=== PATIENT | male | born 1990 | race Caucasian/White ===

== ENCOUNTER 2017-03-13 14:41 | Emergency (ER) | payer OTHER ==
[2017-03-13] MEDS ORDERED: KETOROLAC 60 MG/2 ML VIAL IM STA (14:55)
[2017-03-13 14:59] VITALS: BP 135/76; PULSE 72; RESP 18; TEMP 98.2
--- NOTE | 2017-03-13 15:21 | ED ---
Back Pain HPI - General Stated Complaint: back pain Time Seen by Provider: 03/13/17 14:41 Source: patient, RN/MD, RN notes reviewed Limitations: no limitations - History of Present Illness Initial Comments: This is a 26-year-old male who presents emergency department complaining of low back pain. Patient states she was sitting something down at home at about 8 AM this morning and pulled something in his right lower back. He is Sharp pain which is exacerbated by movement. Pain does radiate into the right leg. Patient has some tingling in both legs. Patient denies any numbness or tingling in the scrotal area or the genital area. Patient denies problems with bowels or urination. No fever or chills. No nausea vomiting. No abdominal pain. No recent instrumentation. No trauma. No history of diabetes or immunosuppression. No fever or chills. Patient denies any shortness breath or chest pain, no neck pain, no headache or dizziness. MD Complaint: back pain - Related Data Previous Rx's Medication Instructions Recorded Cyclobenzaprine [Flexeril] 10 mg PO TID PRN #20 tab 03/13/17 Naproxen [Naprosyn] 500 mg PO Q12HR PRN #24 tab 03/13/17 Allergies Allergy/AdvReac Type Severity Reaction Status Date / Time No Known Allergies Allergy Verified 03/13/17 14:52 Review of Systems ROS Statement: Those systems with pertinent positive or pertinent negative responses have been documented in the HPI. ROS Other: All systems not noted in ROS Statement are negative. Past Medical History Past Medical History: Hypertension Additional Past Medical History / Comment(s): History of previous back pain secondary to an injury in [place] History of Any Multi-Drug Resistant Organisms: None Reported Past Surgical History: Adenoidectomy, Orthopedic Surgery, Tonsillectomy Past Psychological History: PTSD Smoking Status: Current some day smoker Past Alcohol Use History: Occasional Past Drug Use History: None Reported General Exam - General Exam Comments Initial Comments: This is a well-developed, well-nourished 26-year-old male who presents emergency department in moderate distress secondary to right low back pain. Patient does not appear to be ill or toxic. Limitations: no limitations General appearance: alert, in distress Head exam: Present: atraumatic, normocephalic, normal inspection Eye exam: Present: normal appearance, EOMI. Absent: scleral icterus, conjunctival injection, periorbital swelling ENT exam: Present: normal exam, mucous membranes moist Neck exam: Present: normal inspection. Absent: tenderness, meningismus, lymphadenopathy Respiratory exam: Present: normal lung sounds bilaterally. Absent: respiratory distress, wheezes, rales, rhonchi, stridor Cardiovascular Exam: Present: regular rate, normal rhythm, normal heart sounds. Absent: systolic murmur, diastolic murmur, rubs, gallop, clicks GI/Abdominal exam: Present: soft. Absent: distended, tenderness, guarding, rebound, rigid Extremities exam: Present: normal inspection, full ROM, normal capillary refill. Absent: tenderness, pedal edema, joint swelling, calf tenderness Back exam: Present: normal inspection, tenderness, paraspinal tenderness, other (Patient has mild tenderness to the area of the right lumbar paraspinals. There is no overlying rash or erythema. There is no midline tenderness. No crepitus. No step-off. Straight leg raise is negative and laterally, patient does have pain in the back with this maneuver. Distal sensation intact, DTRs are intact with regards patellar and Achilles. Great toe extensor strength is + 5 out of 5.). Absent: full ROM, CVA tenderness (L), muscle spasm, vertebral tenderness, rash noted Neurological exam: Present: alert, oriented X3, CN II-XII intact Psychiatric exam: Present: normal affect, normal mood Skin exam: Present: warm, dry, intact, normal color. Absent: rash Course Vital Signs 03/13/17 14:52 Temperature 98.2 F Pulse Rate 72 Respiratory 18 Rate Blood Pressure 135/76 O2 Sat by Pulse 98 Oximetry Medical Decision Making - Medical Decision Making Patient appears have muscular skeletal back pain. Patient does not appear to be ill or toxic. Disposition Clinical Impression: Strain of lumbar region, Lumbar radiculopathy Disposition: HOME SELF-CARE Condition: Good Instructions: Acute Low Back Pain (ED) Additional Instructions: Ensure that you follow-up with your primary care physician for reevaluation within 2-3 days. Partake in light walking, 20 minutes at a time 2 or 3 times daily. Apply moist heat to the back 20 minutes at a time 3 or 4 times daily.Return to the ER at once if the symptoms worsen or problems or difficulties arise. Do not take the Naprosyn for at least 8-12 hours. Prescriptions: Cyclobenzaprine [Flexeril] 10 mg PO TID PRN #20 tab PRN Reason: Muscle Spasm Naproxen [Naprosyn] 500 mg PO Q12HR PRN #24 tab PRN Reason: Pain Referrals: Jillian Burks MD [STAFF PHYSICIAN] - 03/17/17 Time of Disposition: 15:17
== END 2017-03-13 15:46 | disposition home or self-care (01) ==
LOC: EC 14:41
DX: S39.012A Strain of muscle, fascia and tendon of lower back, initial encounter (principal); M54.16 Radiculopathy, lumbar region; F17.200 Nicotine dependence, unspecified, uncomplicated; Z98.890 Other specified postprocedural states; Y92.009 Unspecified place in unspecified non-institutional (private) residence as the place of occurrence of the external cause
CPT/HCPCS: 99283; 96372; J1885

== ENCOUNTER → 2017-03-19 | Outpatient (CLI) | payer OTHER ==
--- NOTE | 2017-03-20 05:41 | MR ---
EXAMINATION TYPE: MR lumbar spine wo con DATE OF EXAM: 03/19/2017 COMPARISON: Lumbar spine x-ray September 17, 2012. HISTORY: Severe LBP since 2012, injured while bending, felt a pop, legs went numb per patient. Low ba ck pain per order. TECHNIQUE: Multiplanar, multisequence imaging of the lumbar spine is performed without IV contrast. FINDINGS: Sagittal images of the lumbar spine show vertebral body heights and alignment to appear sat isfactory. There is disc desiccation at L2-L3 and L4-L5 levels. Mild to moderate disc space narrowin g L4-L5 level is seen. Small posterior disc herniations are seen at L2-L3 and L4-L5 levels on sagitta l images. The conus medullaris is not well identified believed ending near T12-L1 disc space likely w ithin normal limits. The bone marrow signal intensity is within normal limits. No significant spurri ng is seen. Axial images are suboptimal as are degraded by patient's large body habitus. Axial images at T12-L1 a nd L1-L2 levels are likely within normal limits. Axial images at L2-L3 level show mild broad disc bulge minimally effacing anterior thecal sac, bilate ral neural foramina are patent on axial image 12. Axial images at L3-L4 level are within normal limits. Axial images at L4-L5 level show broad disc bulge with central disc protrusion component effacing ant erior thecal sac and axial image 8, bilateral neural foramina are patent. Axial images at L5-S1 level are felt within normal limits. No suspicious retroperitoneal findings are seen. IMPRESSION: Degenerative changes at L2-L3 and L4-L5 level are seen as detailed above.
== END | disposition home or self-care (01) ==
LOC: RADMRIMAIN 21:21
PROVIDERS: ATTEND Physical Medicine & Rehabilitation
DX: M47.26 Other spondylosis with radiculopathy, lumbar region (principal); K21.9 Gastro-esophageal reflux disease without esophagitis; F43.10 Post-traumatic stress disorder, unspecified
CPT/HCPCS: 72148

== ENCOUNTER 2018-09-28 02:50 | Inpatient (IN) | payer BC, OTHER ==
[2018-09-28] MEDS ORDERED: HYDROmorphone 1 MG/ML 1 ML SYRINGE IVP STA ×3 (03:30→06:15)
--- NOTE | 2018-09-28 03:36 | ED ---
Abdominal Pain HPI - General Chief Complaint: Abdominal Pain Stated Complaint: abd pain Time Seen by Provider: 09/28/18 02:57 Source: patient, family Mode of arrival: ambulatory Limitations: no limitations - History of Present Illness Initial Comments: This patient is a 28-year-old man with previous history kidney stone, who presents with complaint of right lower quadrant and right flank pain. The patient states that the pain had come on last evening. He was seen at [facility], where he reportedly had a CAT scan that showed reported kidney stone. The patient was given a number of prescriptions and released. He states that the pain became much more severe tonight. He states that the pain is currently severe, he is not able to characterize it, he indicates the right lower quadrant stating the pain is from the right testicle into the right flank. He has not discovered worsening or relieving factors. He hasn't tried taking the ketorolac and hydrocodone that was prescribed without relief. He is having some nausea. States his last bowel movement was earlier in the day and there was no blood or tarry material. He has not noted a change in urination. MD Complaint: abdominal pain, flank pain Onset/Timin -: hour(s) Location: RLQ, R flank Severity: severe Quality: other (Not able to characterize) Consistency: constant Improves With: nothing Worsens With: nothing Associated Symptoms: nausea - Related Data Home Medications Medication Instructions Recorded Confirmed Dextroamphetamine/Amphetamine 25 mg PO BID 09/28/18 09/28/18 [Adderall Xr] HYDROcodone/APAP 5-325MG [[place] 1 tab PO Q6H PRN 09/28/18 09/28/18 5-325] Ketorolac [Toradol] 10 mg PO Q6HR PRN 09/28/18 09/28/18 Omeprazole Magnesium [PriLOSEC OTC] 40 mg PO DAILY 09/28/18 09/28/18 Ondansetron Odt [Zofran Odt] 4 mg PO Q12HR PRN 09/28/18 09/28/18 Tamsulosin [Flomax] 0.4 mg PO DAILY 09/28/18 09/28/18 Allergies Allergy/AdvReac Type Severity Reaction Status Date / Time No Known Allergies Allergy Verified 09/28/18 07:07 Review of Systems ROS Statement: Those systems with pertinent positive or pertinent negative responses have been documented in the HPI. ROS Other: All systems not noted in ROS Statement are negative. Constitutional: Denies: fever, chills Respiratory: Denies: cough, dyspnea Cardiovascular: Denies: chest pain, palpitations Gastrointestinal: Reports: abdominal pain, nausea. Denies: vomiting, diarrhea, melena, hematochezia Genitourinary: Reports: testicular pain. Denies: dysuria, hematuria, discharge, testicular mass Musculoskeletal: Denies: back pain Skin: Denies: rash Neurological: Denies: headache, weakness, numbness Past Medical History Past Medical History: Hypertension Additional Past Medical History / Comment(s): History of previous back pain sec ondary to an injury in [place] History of Any Multi-Drug Resistant Organisms: None Reported Past Surgical History: Adenoidectomy, Orthopedic Surgery, Tonsillectomy Past Psychological History: PTSD Smoking Status: Current some day smoker Past Alcohol Use History: Occasional Past Drug Use History: None Reported General Exam Limitations: physical limitation (The exam is limited as the patient resists palpation of either the abdomen or the scrotum.) General appearance: alert, in distress Head exam: Present: atraumatic, normocephalic Eye exam: Present: normal appearance Respiratory exam: Present: normal lung sounds bilaterally. Absent: respiratory distress, wheezes, rales, rhonchi, stridor Cardiovascular Exam: Present: regular rate, normal rhythm, normal heart sounds. Absent: systolic murmur, diastolic murmur, rubs, gallop GI/Abdominal exam: Present: tenderness, guarding. Absent: rigid, mass exam: Present: normal inspection, testicular tenderness, circumcision. Absent: urethral discharge, scrotal swelling Extremities exam: Present: normal inspection, normal capillary refill. Absent: pedal edema, calf tenderness Back exam: Present: normal inspection. Absent: CVA tenderness (R), CVA tenderness (L) Neurological exam: Present: alert Skin exam: Present: warm, dry, intact, normal color. Absent: rash Course Vital Signs 09/28/18 09/28/18 09/28/18 02:57 04:15 06:46 Temperature 97.5 F L 98.3 F Pulse Rate 72 78 Respiratory 20 18 18 Rate Blood Pressure 138/76 128/83 O2 Sat by Pulse 99 97 Oximetry Medical Decision Making - Lab Data Result diagrams: 09/28/18 03:10 09/28/18 03:10 Lab Results 09/28/18 09/28/18 09/28/18 Range/Units 03:10 03:10 03:10 WBC 11.5 H (3.8-10.6) k/uL RBC 5.36 (4.30-5.90) m/uL Hgb 16.1 (13.0-17.5) gm/dL Hct 45.6 (39.0-53.0) % MCV 85.0 (80.0-100.0) fL MCH 30.0 (25.0-35.0) pg MCHC 35.3 (31.0-37.0) g/dL RDW 12.7 (11.5-15.5) % Plt Count 247 (150-450) k/uL Neutrophils % 63 % Lymphocytes % 26 % Monocytes % 6 % Eosinophils % 2 % Basophils % 0 % Neutrophils # 7.3 (1.3-7.7) k/uL Lymphocytes # 3.0 (1.0-4.8) k/uL Monocytes # 0.7 (0-1.0) k/uL Eosinophils # 0.2 (0-0.7) k/uL Basophils # 0.0 (0-0.2) k/uL Sodium 142 (137-145) mmol/L Potassium 4.2 (3.5-5.1) mmol/L Chloride 111 H (98-107) mmol/L Carbon Dioxide 22 (22-30) mmol/L Anion Gap 9 mmol/L BUN 17 (9-20) mg/dL Creatinine 1.18 (0.66-1.25) mg/dL Est GFR (CKD-EPI)AfAm >90 (>60 ml/min/1.73 sqM) Est GFR (CKD-EPI)NonAf 82 (>60 ml/min/1.73 sqM) Glucose 98 (74-99) mg/dL Lactic Ac Sepsis Rflx Plasma Lactic Acid Daniel 2.1 H* (0.7-2.0) mmol/L Calcium 10.0 (8.4-10.2) mg/dL Total Bilirubin 0.5 (0.2-1.3) mg/dL AST 23 (17-59) U/L ALT 37 (21-72) U/L Alkaline Phosphatase 85 (38-126) U/L Total Protein 6.9 (6.3-8.2) g/dL Albumin 4.4 (3.5-5.0) g/dL Amylase 56 (30-110) U/L Lipase 106 (23-300) U/L Urine Color Urine Appearance (Clear) Urine pH (5.0-8.0) Ur Specific [place] (1.001-1.035) Urine Protein (Negative) Urine Glucose (UA) (Negative) Urine Ketones (Negative) Urine Blood (Negative) Urine Nitrite (Negative) Urine Bilirubin (Negative) Urine Urobilinogen (<2.0) mg/dL Ur Leukocyte Esterase (Negative) Urine RBC (0-5) /hpf Urine WBC (0-5) /hpf Urine Mucus (None) /hpf 09/28/18 09/28/18 Range/Units 03:51 04:44 WBC (3.8-10.6) k/uL RBC (4.30-5.90) m/uL Hgb (13.0-17.5) gm/dL Hct (39.0-53.0) % MCV (80.0-100.0) fL MCH (25.0-35.0) pg MCHC (31.0-37.0) g/dL RDW (11.5-15.5) % Plt Count (150-450) k/uL Neutrophils % % Lymphocytes % % Monocytes % % Eosinophils % % Basophils % % Neutrophils # (1.3-7.7) k/uL Lymphocytes # (1.0-4.8) k/uL Monocytes # (0-1.0) k/uL Eosinophils # (0-0.7) k/uL Basophils # (0-0.2) k/uL Sodium (137-145) mmol/L Potassium (3.5-5.1) mmol/L Chloride (98-107) mmol/L Carbon Dioxide (22-30) mmol/L Anion Gap mmol/L BUN (9-20) mg/dL Creatinine (0.66-1.25) mg/dL Est GFR (CKD-EPI)AfAm (>60 ml/min/1.73 sqM) Est GFR (CKD-EPI)NonAf (>60 ml/min/1.73 sqM) Glucose (74-99) mg/dL Lactic Ac Sepsis Rflx Y Plasma Lactic Acid Daniel (0.7-2.0) mmol/L Calcium (8.4-10.2) mg/dL Total Bilirubin (0.2-1.3) mg/dL AST (17-59) U/L ALT (21-72) U/L Alkaline Phosphatase (38-126) U/L Total Protein (6.3-8.2) g/dL Albumin (3.5-5.0) g/dL Amylase (30-110) U/L Lipase (23-300) U/L Urine Color Light Red Urine Appearance Clear (Clear) Urine pH 6.0 (5.0-8.0) Ur Specific [place] 1.028 (1.001-1.035) Urine Protein 1+ H (Negative) Urine Glucose (UA) Negative (Negative) Urine Ketones Negative (Negative) Urine Blood Large H (Negative) Urine Nitrite Negative (Negative) Urine Bilirubin Negative (Negative) Urine Urobilinogen <2.0 (<2.0) mg/dL Ur Leukocyte Esterase Negative (Negative) Urine RBC >182 H (0-5) /hpf Urine WBC 4 (0-5) /hpf Urine Mucus Few H (None) /hpf Disposition Clinical Impression: Kidney stone on right side, Intractable pain Disposition: ADMITTED IP TO THIS HOSP Condition: Good Is patient prescribed a controlled substance at d/c from ED?: No
[2018-09-28 03:39] LABS: Basophils % (A) 0 %; Eosinophils # (A) 0.2 k/uL (0-0.7); Eosinophils % (A) 2 %; HCT 45.6 % (39.0-53.0); HGB 16.1 gm/dL (13.0-17.5); Lymphocytes % (A) 26 %; MCHC 35.3 g/dL (31.0-37.0); Mean Platelet Volume 7.5; Monocytes # (A) 0.7 k/uL (0-1.0); Monocytes % (A) 6 %; Neutrophils # (A) 7.3 k/uL (1.3-7.7); Neutrophils % (A) 63 %; Platelet Count 247 k/uL (150-450); RBC 5.36 m/uL (4.30-5.90); RDW 12.7 % (11.5-15.5); WBC 11.5 k/uL (3.8-10.6)
[2018-09-28] MEDS ORDERED: ONDANSETRON 4 MG/2 ML VIAL IVP STA ×2 (03:43→03:44)
[2018-09-28 03:50] LABS: ALT 37 U/L (21-72); AST 23 U/L (17-59); Albumin 4.4 g/dL (3.5-5.0); Alkaline Phosphatase 85 U/L (38-126); Amylase 56 U/L (30-110); Anion Gap 9 mmol/L; Blood Urea Nitrogen 17 mg/dL (9-20); Carbon Dioxide 22 mmol/L (22-30); Chloride 111 mmol/L (98-107); Glucose 98 mg/dL (74-99); Lipase 106 U/L (23-300); Potassium 4.2 mmol/L (3.5-5.1); Sodium 142 mmol/L (137-145); Total Bilirubin 0.5 mg/dL (0.2-1.3); Total Protein 6.9 g/dL (6.3-8.2)
[2018-09-28] MEDS ORDERED: TAMSULOSIN 0.4 MG CAP.ER.24H PO STA (04:26)
[2018-09-28] MEDS ORDERED: KETOROLAC 30 MG/ML 1 ML VIAL IVP STA (04:34)
--- NOTE | 2018-09-28 04:41 | US ---
EXAM: US Scrotum CLINICAL HISTORY: Pain. Abdominal pain, vomiting, back pain, right testicular pain; prior left torsion per patient; renal stone per patient TECHNIQUE: Real-time ultrasound of the scrotum with color Doppler and image documentation. COMPARISON: No relevant prior studies available. FINDINGS: Right testicle: Right testis measures about 5.3 x 2.6 x 3.1 cm. No torsion. Left testicle: Left testis measures about 4.9 x 2.7 x 2.9 cm No torsion. Epididymides: Unremarkable. Scrotum: Unremarkable. IMPRESSION: No acute findings.
[2018-09-28 05:11] LABS: Appearance,Urine Clear (Clear); Bilirubin,Urine Negative (Negative); Blood,Urine Large (Negative); Color,Urine Light Red; Glucose,Urine (UA) Negative (Negative); Ketones,Urine Negative (Negative); Leukocyte Esterase,Urine Negative (Negative); Mucus,Urine Few /hpf; Nitrite,Urine Negative (Negative); Protein,Urine 1+ (Negative); RBC,Urine >182 /hpf (0-5); Specific Gravity,Urine 1.028 (1.001-1.035); Urobilinogen,Urine <2.0 mg/dL (<2.0); WBC,Urine 4 /hpf (0-5)
--- NOTE | 2018-09-28 05:32 | CT ---
EXAM: CT Abdomen and Pelvis Without Intravenous Contrast CLINICAL HISTORY: RLQ abd pain that radiates into groin area. TECHNIQUE: Axial computed tomography images of the abdomen and pelvis without intravenous contrast. CTDI is 19.1 mGy and DLP is 1136 mGy-cm. This CT exam was performed using one or more of the following dose reduction techniques: automated exposure control, adjustment of the mA and/or kV according to patient size, and/or use of iterative reconstruction technique. Coronal and sagittal reconstructions are performed COMPARISON: No relevant prior studies available. FINDINGS: Lung bases: Unremarkable. No mass. No consolidation. ABDOMEN: Liver: Unremarkable. Gallbladder and bile ducts: Unremarkable. No calcified stones. No ductal dilation. Pancreas: Unremarkable. No ductal dilation. Spleen: Unremarkable. No splenomegaly. Adrenals: Unremarkable. No mass. Kidneys and ureters: 5 mm obstructing right vesicoureteral junction stone causes mild hydroureter and hydronephrosis. Tiny nonobstructing bilateral renal stones measuring up to 4 mm. Stomach and bowel: Unremarkable. No obstruction. No mucosal thickening. PELVIS: Appendix: Normal. Bladder: Unremarkable. No stones. Reproductive: Unremarkable as visualized. ABDOMEN and PELVIS: Intraperitoneal space: Unremarkable. No free air. No significant fluid collection. Bones/joints: No acute fracture. No dislocation. Soft tissues: Unremarkable. Vasculature: Unremarkable. No abdominal aortic aneurysm. Lymph nodes: Unremarkable. No enlarged lymph nodes. IMPRESSION: 1. 5 mm obstructing right vesicoureteral junction stone causes mild hydroureter and hydronephrosis. 2. Tiny nonobstructing bilateral renal stones measuring up to 4 mm.
[2018-09-28] MEDS ORDERED: ONDANSETRON 4 MG/2 ML VIAL IVP PRN (06:17)
[2018-09-28] MEDS ORDERED: NALOXONE 0.4 MG/ML 1 ML VIAL IV PRN (06:17)
[2018-09-28] MEDS ORDERED: SODIUM CHLORIDE 0.9% 1,000 ML IV SCH (06:30)
--- NOTE | 2018-09-28 07:46 | P.GSHP ---
History of Present Illness H&P Date: 09/28/18 This is a pleasant 28-year-old gentleman who for the past week has been having problems with hematuria and then over the weekend right-sided flank and lower quadrant pain. He was seen at [facility] where he was suspected of the stone and was discharged home for spontaneous passage only to have the discomfort returned. He presented to [facility]. His situation was reviewed. The identification of a 5 mm distal ureteral stone with proximal hydroureteronephrosis was identified. Due to persistent pain he was admitted for IV fluids parenteral narcotics and further evaluation. The patient does have a history of stones. He passed one last in 2011. He has not had urologic evaluation or urologic surgery. Medical illnesses. He is reasonably comfortable at this point in time. There is been no fever. He has had some chills. There is been nausea and vomiting. He does not know of any family history of stones - Constitutional Constitutional: Denies chills, Denies fever - EENT Eyes: denies blurred vision, denies pain Ears, nose, mouth and throat: Denies headache, Denies sore throat - Cardiovascular Cardiovascular: Denies chest pain, Denies shortness of breath - Respiratory Respiratory: Denies cough, Denies 7 - Gastrointestinal Gastrointestinal: Denies abdominal pain, Denies diarrhea, Denies nausea, Denies vomiting - Genitourinary (Female) Genitourinary: Denies dysuria, Denies hematuria - Genitourinary (Male) Genitourinary: Denies dysuria, Denies hematuria - Musculoskeletal Musculoskeletal: Denies myalgias - Integumentary Integumentary: Denies pruritus, Denies rash - Neurological Neurological: Denies numbness, Denies weakness - Psychiatric Psychiatric: Denies anxiety, Denies depression - Endocrine Endocrine: Denies fatigue, Denies weight change Past Medical History Past Medical History: Hypertension Additional Past Medical History / Comment(s): History of previous back pain secondary to an injury in [place] History of Any Multi-Drug Resistant Organisms: None Reported Past Surgical History: Adenoidectomy, Orthopedic Surgery, Tonsillectomy Past Psychological History: PTSD Smoking Status: Current some day smoker Past Alcohol Use History: Occasional Past Drug Use History: None Reported Medications and Allergies Home Medications Medication Instructions Recorded Confirmed Type Dextroamphetamine/Amphetamine 25 mg PO BID 09/28/18 09/28/18 History [Adderall Xr] HYDROcodone/APAP 5-325MG [[place] 1 tab PO Q6H PRN 09/28/18 09/28/18 History 5-325] Ketorolac [Toradol] 10 mg PO Q6HR PRN 09/28/18 09/28/18 History Omeprazole Magnesium [PriLOSEC OTC] 40 mg PO DAILY 09/28/18 09/28/18 History Ondansetron Odt [Zofran Odt] 4 mg PO Q12HR PRN 09/28/18 09/28/18 History Tamsulosin [Flomax] 0.4 mg PO DAILY 09/28/18 09/28/18 History Allergies Allergy/AdvReac Type Severity Reaction Status Date / Time No Known Allergies Allergy Verified 09/28/18 07:07 Surgical - Exam Vital Signs Temp Pulse Resp BP Pulse Ox 97.5 F L 72 20 138/76 99 09/28/18 02:57 09/28/18 02:57 09/28/18 02:57 09/28/18 02:57 09/28/18 02:57 - General well developed, well nourished, no distress - Eyes PERRL - ENT no hearing loss - Neck trachea midline - Respiratory normal expansion, normal respiratory effort - Cardiovascular Rhythm: regular - Abdomen Abdomen: soft, tender - Genitourinary normal penis with no external lesions, testicles present - Integumentary no rash, no growths - Neurologic normal coordination, normal sensation - Musculoskeletal normal posture - Psychiatric oriented to time, oriented to person, oriented to place, speech is normal, mem ory intact Results - Labs 09/28/18 03:10 09/28/18 03:10 Abnormal Lab Results - Last 24 Hours (Table) 09/28/18 09/28/18 09/28/18 Range/Units 03:10 03:10 03:10 WBC 11.5 H (3.8-10.6) k/uL Chloride 111 H (98-107) mmol/L Plasma Lactic Acid Daniel 2.1 H* (0.7-2.0) mmol/L Urine Protein (Negative) Urine Blood (Negative) Urine RBC (0-5) /hpf Urine Mucus (None) /hpf 09/28/18 Range/Units 04:44 WBC (3.8-10.6) k/uL Chloride (98-107) mmol/L Plasma Lactic Acid Daniel (0.7-2.0) mmol/L Urine Protein 1+ H (Negative) Urine Blood Large H (Negative) Urine RBC >182 H (0-5) /hpf Urine Mucus Few H (None) /hpf Diabetes panel 09/28/18 Range/Units 03:10 Sodium 142 (137-145) mmol/L Potassium 4.2 (3.5-5.1) mmol/L Chloride 111 H (98-107) mmol/L Carbon Dioxide 22 (22-30) mmol/L BUN 17 (9-20) mg/dL Creatinine 1.18 (0.66-1.25) mg/dL Glucose 98 (74-99) mg/dL Calcium 10.0 (8.4-10.2) mg/dL AST 23 (17-59) U/L ALT 37 (21-72) U/L Alkaline Phosphatase 85 (38-126) U/L Total Protein 6.9 (6.3-8.2) g/dL Albumin 4.4 (3.5-5.0) g/dL Calcium panel 09/28/18 Range/Units 03:10 Calcium 10.0 (8.4-10.2) mg/dL Albumin 4.4 (3.5-5.0) g/dL Pituitary panel 09/28/18 Range/Units 03:10 Sodium 142 (137-145) mmol/L Potassium 4.2 (3.5-5.1) mmol/L Chloride 111 H (98-107) mmol/L Carbon Dioxide 22 (22-30) mmol/L BUN 17 (9-20) mg/dL Creatinine 1.18 (0.66-1.25) mg/dL Glucose 98 (74-99) mg/dL Calcium 10.0 (8.4-10.2) mg/dL Adrenal panel 09/28/18 Range/Units 03:10 Sodium 142 (137-145) mmol/L Potassium 4.2 (3.5-5.1) mmol/L Chloride 111 H (98-107) mmol/L Carbon Dioxide 22 (22-30) mmol/L BUN 17 (9-20) mg/dL Creatinine 1.18 (0.66-1.25) mg/dL Glucose 98 (74-99) mg/dL Calcium 10.0 (8.4-10.2) mg/dL Total Bilirubin 0.5 (0.2-1.3) mg/dL AST 23 (17-59) U/L ALT 37 (21-72) U/L Alkaline Phosphatase 85 (38-126) U/L Total Protein 6.9 (6.3-8.2) g/dL Albumin 4.4 (3.5-5.0) g/dL - Imaging CT scan - abdomen: report reviewed, image reviewed CT scan - pelvis: report reviewed, image reviewed Assessment and Plan Assessment: Impression: Right ureteral calculus with obstruction. Right renal calculi, small Recommendations: I will run IV fluids and given parenteral narcotics as well as Flomax to see if this stone can pass today. If not he wishes it to be removed which would be set up for tomorrow.
[2018-09-28] MEDS: DEXTROSE 5%-0.45% NACL 1,000 ML IV SCH ×3 (08:45→23:55)
[2018-09-28] MEDS: HYDROmorphone 1 MG/ML 1 ML SYRINGE IVP PRN ×6 (09:34→23:48)
[2018-09-28] MEDS: ONDANSETRON 4 MG/2 ML VIAL IVP PRN ×3 (12:58→23:46)
[2018-09-28] MEDS: METOCLOPRAMIDE 5 MG/ML 2 ML VIAL IVP PRN (19:21)
[2018-09-28] MEDS: HYDROmorphone 1 MG/ML 1 ML SYRINGE IVP STA ×2 (19:40→20:34)
[2018-09-29] MEDS: METOCLOPRAMIDE 5 MG/ML 2 ML VIAL IVP PRN (05:44)
[2018-09-29] MEDS: HYDROmorphone 1 MG/ML 1 ML SYRINGE IVP PRN ×3 (05:47→11:39)
[2018-09-29] MEDS: DEXTROSE 5%-0.45% NACL 1,000 ML IV SCH ×2 (07:55→16:03)
[2018-09-29] MEDS ORDERED: TAMSULOSIN 0.4 MG CAP.ER.24H PO SCH (08:30)
[2018-09-29] MEDS ORDERED: IV FLUID CONTINUATION 1,000 ML IV ONE (11:52)
[2018-09-29] MEDS ORDERED: MIDAZOLAM 2 MG/2 ML VIAL IV ONE (12:02)
[2018-09-29] MEDS ORDERED: LIDOCAINE 1% INJ 10MG/ML (20 ML MDV) ONE (12:40)
[2018-09-29] MEDS ORDERED: PROPOFOL 10 MG/ML 20 ML VIAL IV ONE (12:40)
[2018-09-29] MEDS ORDERED: ROCURONIUM BROMIDE 10 MG/ML 10 ML VIAL IV ONE (12:40)
[2018-09-29] MEDS ORDERED: MIDAZOLAM 2 MG/2 ML VIAL ONE (12:40)
[2018-09-29] MEDS ORDERED: SUCCINYLCHOLINE CHLORIDE VIAL 200 MG/10 ML VIAL IV ONE (12:40)
[2018-09-29] MEDS ORDERED: fentaNYL (PF) 50 MCG/ML 2 ML AMP ONE (12:40)
[2018-09-29] MEDS ORDERED: GLYCOPYRROLATE 0.2 MG/ML 2 ML VIAL ONE (12:40)
[2018-09-29] MEDS ORDERED: NEOSTIGMINE 1 MG/ML 10 ML VIAL ONE (12:40)
[2018-09-29] MEDS ORDERED: SODIUM CHLORIDE 0.9% 100 ML with ceFAZolin 2,000 MG IV ONE ×2 (12:51)
[2018-09-29] MEDS ORDERED: IOHEXOL 300 MG/ML 50 ML BOTTLE MISCELLANE ONE (13:05)
[2018-09-29] MEDS ORDERED: LACTATED RINGERS 1,000 ML IV ONE (13:23)
--- NOTE | 2018-09-29 13:36 | P.OP ---
Date of Procedure: 09/29/18 Preoperative Diagnosis: right ureteral calculus Postoperative Diagnosis: same, passed Procedure(s) Performed: cystoscopy, right ureteroscopy, right retrograde pyelogram Anesthesia: TIAN Surgeon: Bhaskar Langley Pathology: none sent Condition: stable Disposition: PACU Indications for Procedure: the patient is a 28-year-old gentleman who presented to the hospital early in the morning 331 with severe he right ureteral colic. A computed tomography scan identified a 5 mm distal ureteral stone. He was admitted the hospital. He continue to have pain on for one was set up for a right ureteroscopy today. He states that he did not pass a stone and was still having some pain preoperatively. Description of Procedure: the patient is brought to the operating suite. He is given a general endotracheal anesthesia. He's placed lithotomy position with a sterile prep and drape. Fluoroscopy identifies a calcification in the region of the right distal ureter. Cystoscopy Foroblique lens and 22-[place] sheath identifies a normal urethra. The bladder mucosa is unremarkable. Ureters are unremarkable. Since it appears that the stone is in the distal ureter the 7-[place] mini ureteroscope was passed through the urethra into the bladder and then up the ureter. The calcification seen on the fluoroscopy was actually outside where the scope was going up. I can see edema and erythema in the region where stone probably lodged. I removed the ureteroscope and then within a cone-tipped catheter a retrograde pyelogram and the ureters of normal course and caliber. There is slight swelling of the ureter where the stone obstructed but there is no filling defect consistent with a stone. The bladder strain the cystoscopy and ureteroscope remove the patient's awake and returned recovery in good condition Impression this patient probably passed a stone. I inspected closely to make sure there was not a duplex system and I did not see any. He'll be discharged home later today and follow in the office in one week. End of dictation
--- NOTE | 2018-09-29 13:38 | P.DS ---
Providers Date of admission: 09/28/18 06:17 Attending physician: Bhaskar Langley Primary care physician: El Regan Pertinent Studies: the patient was a 28-year-old gentleman who is had ureteral colic for about a week. He is admitted the hospital early Friday morning with severe ureteral colic a. He was given 24 hours to pass a stone but he did not he had severe pain throughout the day and night including nausea and vomiting as he is set up for ureteroscopy today. He states that he felt better today but had not passed a stone. He thus underwent cystoscopy retrograde pyelogram ureteroscopy and it up here as it the stone passes none was identified. The patient will thus be discharged home. He'll follow-up in the office in one week. His diet is regular. His activities Limited is normal. He may return to work. He shouldn't require any medicine other than Tylenol or Motrin. His condition is good. Patient Condition at Discharge: Good Plan - Discharge Summary Discharge Rx Participant: No New Discharge Prescriptions: No Action Tamsulosin [Flomax] 0.4 mg PO DAILY Ondansetron Odt [Zofran Odt] 4 mg PO Q12HR PRN PRN Reason: Nausea Ketorolac [Toradol] 10 mg PO Q6HR PRN PRN Reason: Pain Omeprazole Magnesium [PriLOSEC OTC] 40 mg PO DAILY HYDROcodone/APAP 5-325MG [[place] 5-325] 1 tab PO Q6H PRN PRN Reason: Pain Dextroamphetamine/Amphetamine [Adderall Xr] 25 mg PO BID Discharge Medication List Dextroamphetamine/Amphetamine [Adderall Xr] 25 mg PO BID 09/28/18 [History] HYDROcodone/APAP 5-325MG [[place] 5-325] 1 tab PO Q6H PRN 09/28/18 [History] Ketorolac [Toradol] 10 mg PO Q6HR PRN 09/28/18 [History] Omeprazole Magnesium [PriLOSEC OTC] 40 mg PO DAILY 09/28/18 [History] Ondansetron Odt [Zofran Odt] 4 mg PO Q12HR PRN 09/28/18 [History] Tamsulosin [Flomax] 0.4 mg PO DAILY 09/28/18 [History] Follow up Appointment(s)/Referral(s): El Regan MD [Primary Care Provider] - 1-2 days Bhaskar Langley MD [STAFF PHYSICIAN] - 1 Week Discharge Disposition: HOME SELF-CARE
[2018-09-29 13:49] VITALS: RESP 16
[2018-09-29] MEDS ORDERED: KETOROLAC 30 MG/ML 1 ML VIAL IVP ONE (14:04)
[2018-09-29] MEDS: ONDANSETRON 4 MG/2 ML VIAL IVP PRN (14:04)
[2018-09-29] MEDS ORDERED: HYDROmorphone 1 MG/ML 1 ML SYRINGE IVP ONE (14:15)
--- NOTE | 2018-09-29 14:19 | FL ---
Fluoroscopy HISTORY: Right lower quadrant abdomen pain, right ureteral stone 39 seconds fluoroscopy time supplied to the referring clinician. 7 intraoperative C-arm images docum ent the procedure. See dictated report from urology.
[2018-09-29 15:02] VITALS: TEMP 97.7
[2018-09-29 16:27] VITALS: BP 110/60; PULSE 76
== END 2018-09-29 18:46 | disposition home or self-care (01) | DRG 694 ==
LOC: EC 02:50 → 4MS4W 06:17
PROVIDERS: ADMIT Urology; ATTEND Urology
PROC: BT1D1ZZ Fluoroscopy of Right Kidney, Ureter and Bladder using Low Osmolar Contrast (ICD-10-PCS; principal; 2018-09-29 12:40)
DX: N13.2 Hydronephrosis with renal and ureteral calculous obstruction (principal); I10 Essential (primary) hypertension; F43.10 Post-traumatic stress disorder, unspecified; F17.200 Nicotine dependence, unspecified, uncomplicated; Z87.442 Personal history of urinary calculi; Z79.899 Other long term (current) drug therapy
CPT/HCPCS: 36415; 74176; 74420; 76870; 80053; 81001; 82150; 83605; 83690; 85025; 93975; 96374; 96375; 96376; 99285

== ENCOUNTER 2019-01-18 08:44 | Emergency (ER) | payer BC ==
--- NOTE | 2019-01-18 09:04 | ED ---
Lower Extremity Injury HPI - General Chief Complaint: Extremity Injury, Lower Stated Complaint: lt ankle pain Time Seen by Provider: 01/18/19 08:53 Source: patient, RN notes reviewed Mode of arrival: ambulatory Limitations: no limitations - History of Present Illness Initial Comments: This is a 28-year-old male presents emergency Department chief complaint of left ankle and foot pain. Patient states that he jumped off a porch messing around with his kids yesterday. Patient states he felt a pop and states his ankle rolled inward. Patient complains of pain when he ambulates today. He denies any prior fractures or injuries to his left ankle denies any pain proximal tib- fib region. He does feel some pain that radiates up his leg. Patient reports full range of motion though he states it is painful. No paresthesias currently - Related Data Home Medications Medication Instructions Recorded Confirmed Dextroamphetamine/Amphetamine 25 mg PO DAILY 09/28/18 01/18/19 [Adderall Xr] Omeprazole Magnesium [PriLOSEC OTC] 40 mg PO DAILY 09/28/18 01/18/19 Previous Rx's Medication Instructions Recorded Ibuprofen [Motrin] 600 mg PO Q8HR PRN #30 tab 01/18/19 Allergies Allergy/AdvReac Type Severity Reaction Status Date / Time No Known Allergies Allergy Verified 01/18/19 09:06 Review of Systems ROS Statement: Those systems with pertinent positive or pertinent negative responses have been documented in the HPI. ROS Other: All systems not noted in ROS Statement are negative. Past Medical History Past Medical History: Hypertension Additional Past Medical History / Comment(s): History of previous back pain secondary to an injury in [place] History of Any Multi-Drug Resistant Organisms: None Reported Past Surgical History: Adenoidectomy, Orthopedic Surgery, Tonsillectomy Additional Past Surgical History / Comment(s): foot surgery from shrapnel Past Anesthesia/Blood Transfusion Reactions: No Reported Reaction Past Psychological History: PTSD Smoking Status: Current some day smoker Past Alcohol Use History: Occasional Past Drug Use History: None Reported General Exam Limitations: no limitations General appearance: alert, in no apparent distress Head exam: Present: atraumatic, normocephalic, normal inspection Neck exam: Present: normal inspection, full ROM. Absent: tenderness, meningismus, lymphadenopathy Respiratory exam: Present: normal lung sounds bilaterally. Absent: respiratory distress, wheezes, rales, rhonchi, stridor Cardiovascular Exam: Present: regular rate, normal rhythm, normal heart sounds. Absent: systolic murmur, diastolic murmur, rubs, gallop, clicks Extremities exam: Present: other (Left ankle there is tenderness on the lateral malleoli region, lateral foot region, neurovascular intact there is mild swelling neurovascular intact no ecchymosis no proximal tib-fib tenderness normal Barber's test) Skin exam: Present: warm, dry, intact, normal color. Absent: rash Course Vital Signs 01/18/19 08:51 Temperature 97.7 F Pulse Rate 77 Respiratory 16 Rate Blood Pressure 123/77 O2 Sat by Pulse 98 Oximetry Medical Decision Making - Medical Decision Making 28-year-old male present emergency Department for left ankle injury x-rays were obtained and reviewed there is no obvious fracture this time. Patient's symptoms are consistent with a left ankle sprain. Patient was placed in a stirrup Aircast will follow-up with orthopedics and return for any worsening symptoms. Disposition Clinical Impression: Left ankle sprain Disposition: HOME SELF-CARE Condition: Stable Instructions (If sedation given, give patient instructions): Ankle Sprain (ED) Additional Instructions: Please return to the Emergency Department if symptoms worsen or any other concerns. Prescriptions: Ibuprofen [Motrin] 600 mg PO Q8HR PRN #30 tab PRN Reason: Pain Is patient prescribed a controlled substance at d/c from ED?: No Referrals: El Regan MD [Primary Care Provider] - 1-2 days Hernan Melgoza DO [Doctor of Osteopathic Medicine] - 1-2 days Time of Disposition: 10:18
[2019-01-18 10:28] VITALS: BP 120/74; PULSE 87; RESP 18; TEMP 97.8
--- NOTE | 2019-01-18 12:08 | XR ---
EXAMINATION TYPE: XR ankle complete LT DATE OF EXAM: 01/18/2019 CLINICAL HISTORY: pain TECHNIQUE: Frontal, lateral and oblique images of the left foot are obtained. COMPARISON: None. FINDINGS: There is no acute fracture/dislocation evident. The joint spaces appear within normal pires its. The overlying soft tissue appears unremarkable. IMPRESSION: There is no acute fracture or dislocation. ICD 10 NO FRACTURE, INITIAL EVALUATION
== END 2019-01-18 10:28 | disposition home or self-care (01) ==
LOC: EC 08:44
DX: S93.402A Sprain of unspecified ligament of left ankle, initial encounter (principal); F17.200 Nicotine dependence, unspecified, uncomplicated; Z79.899 Other long term (current) drug therapy; X50.1XXA Overexertion from prolonged static or awkward postures, initial encounter; Y93.39 Activity, other involving climbing, rappelling and jumping off
CPT/HCPCS: 73610; 73630; 99283; 29515; L4350

== ENCOUNTER → 2020-09-04 | Outpatient (CLI) | payer BC | END | disposition home or self-care (01) | LOC: LABWHC1 15:59 | PROVIDERS: ATTEND Family Medicine | DX: Z20.822 Contact with and (suspected) exposure to COVID-19 (principal) | CPT/HCPCS: U0003; C9803; U0005 ==

== ENCOUNTER 2020-11-16 08:09 | Emergency (ER) | payer BC ==
[2020-11-16 08:15] VITALS: RESP 18; TEMP 97.5
[2020-11-16] MEDS ORDERED: ONDANSETRON 4 MG/2 ML VIAL IVP STA (08:26)
[2020-11-16] MEDS ORDERED: SODIUM CHLORIDE 0.9% 1,000 ML IV STA (08:26)
--- NOTE | 2020-11-16 08:29 | ED ---
General Adult HPI - General Chief complaint: Urogenital Stated complaint: Abd pain, urinating blood Time Seen by Provider: 11/16/20 08:16 Source: patient, RN notes reviewed Mode of arrival: ambulatory Limitations: no limitations - History of Present Illness Initial comments: This a 30-year-old male presents emergency Department with chief complaint of he maturia. Patient states she's had a long history kidney stones states that he was seen last week on Friday had a CAT scan [facility]. He states he passed that stone but states he's been urinating blood %. He states he has some lower abdominal pressure and mild pain. Patient states never had this much blood denies fevers chills he states he feels bloated and has been nauseated. Denies any current back or flank pain - Related Data Home Medications Medication Instructions Recorded Confirmed Dextroamphetamine/Amphetamine 50 mg PO DAILY 09/28/18 11/16/20 [Adderall Xr] Ibuprofen [Motrin Ib] 400 mg PO Q8H PRN 11/16/20 11/16/20 Omeprazole 40 mg PO DAILY 11/16/20 11/16/20 Previous Rx's Medication Instructions Recorded Sulfamethox-Tmp 800-160Mg [Bactrim 1 each PO Q12HR #14 tab 11/16/20 Ds] Allergies Allergy/AdvReac Type Severity Reaction Status Date / Time No Known Allergies Allergy Verified 11/16/20 10:16 Review of Systems ROS Statement: Those systems with pertinent positive or pertinent negative responses have been documented in the HPI. ROS Other: All systems not noted in ROS Statement are negative. Past Medical History Past Medical History: Hypertension Additional Past Medical History / Comment(s): History of previous back pain secondary to an injury in [place] History of Any Multi-Drug Resistant Organisms: None Reported Past Surgical History: Adenoidectomy, Orthopedic Surgery, Tonsillectomy Additional Past Surgical History / Comment(s): foot surgery from shrapnel Past Anesthesia/Blood Transfusion Reactions: No Reported Reaction Past Psychological History: PTSD Smoking Status: Current some day smoker Past Alcohol Use History: Occasional Past Drug Use History: None Reported General Exam Limitations: no limitations General appearance: alert, in no apparent distress Head exam: Present: atraumatic, normocephalic, normal inspection Eye exam: Present: normal appearance, PERRL, EOMI. Absent: scleral icterus, conjunctival injection, periorbital swelling ENT exam: Present: normal exam, normal oropharynx, mucous membranes moist Neck exam: Present: normal inspection, full ROM. Absent: tenderness, meningismus, lymphadenopathy Respiratory exam: Present: normal lung sounds bilaterally. Absent: respiratory distress, wheezes, rales, rhonchi, stridor Cardiovascular Exam: Present: regular rate, normal rhythm, normal heart sounds. Absent: systolic murmur, diastolic murmur, rubs, gallop, clicks GI/Abdominal exam: Present: soft, tenderness (Mild suprapubic tenderness), normal bowel sounds. Absent: distended, guarding, rebound, rigid Back exam: Absent: CVA tenderness (R), CVA tenderness (L) Neurological exam: Present: alert Skin exam: Present: warm, dry, intact, normal color. Absent: rash Course Vital Signs 11/16/20 08:09 Temperature 97.5 F L Pulse Rate 86 Respiratory 18 Rate Blood Pressure 133/92 O2 Sat by Pulse 98 Oximetry Medical Decision Making - Medical Decision Making 30-year-old presented for hematuria. Patient had CT last week which was reviewed showing evidence of stones. Patient ultrasound does not reveal any evidence of hydronephrosis has bilateral kidney stones. Urine analysis shows gross hematuria, moderate bacteria was certainly antibiotics advised follow-up with urology. - Lab Data Result diagrams: 11/16/20 08:54 11/16/20 08:54 Lab Results 11/16/20 11/16/20 11/16/20 Range/Units 08:54 08:54 08:54 WBC 7.4 (3.8-10.6) k/uL RBC 4.85 (4.30-5.90) m/uL Hgb 15.4 (13.0-17.5) gm/dL Hct 42.5 (39.0-53.0) % MCV 87.5 (80.0-100.0) fL MCH 31.7 (25.0-35.0) pg MCHC 36.3 (31.0-37.0) g/dL RDW 12.3 (11.5-15.5) % Plt Count 232 (150-450) k/uL MPV 8.5 Neutrophils % 56 % Lymphocytes % 33 % Monocytes % 7 % Eosinophils % 2 % Basophils % 0 % Neutrophils # 4.1 (1.3-7.7) k/uL Lymphocytes # 2.4 (1.0-4.8) k/uL Monocytes # 0.5 (0-1.0) k/uL Eosinophils # 0.2 (0-0.7) k/uL Basophils # 0.0 (0-0.2) k/uL PT 9.9 (9.0-12.0) sec INR 0.9 (<1.2) APTT 24.9 (22.0-30.0) sec Sodium (137-145) mmol/L Potassium (3.5-5.1) mmol/L Chloride (98-107) mmol/L Carbon Dioxide (22-30) mmol/L Anion Gap mmol/L BUN (9-20) mg/dL Creatinine (0.66-1.25) mg/dL Est GFR (CKD-EPI)AfAm (>60 ml/min/1.73 sqM) Est GFR (CKD-EPI)NonAf (>60 ml/min/1.73 sqM) Glucose (74-99) mg/dL Calcium (8.4-10.2) mg/dL Total Bilirubin (0.2-1.3) mg/dL AST (17-59) U/L ALT (4-49) U/L Alkaline Phosphatase (38-126) U/L Total Protein (6.3-8.2) g/dL Albumin (3.5-5.0) g/dL Urine Color Red Urine Appearance Cloudy (Clear) Urine pH 5.5 (5.0-8.0) Ur Specific [place] 1.022 (1.001-1.035) Urine Protein 1+ H (Negative) Urine Glucose (UA) Negative (Negative) Urine Ketones Negative (Negative) Urine Blood Large H (Negative) Urine Nitrite Negative (Negative) Urine Bilirubin Negative (Negative) Urine Urobilinogen <2.0 (<2.0) mg/dL Ur Leukocyte Esterase Small H (Negative) Urine RBC >182 H (0-5) /hpf Urine WBC 15 H (0-5) /hpf Urine Bacteria Occasional H (None) /hpf 11/16/20 Range/Units 08:54 WBC (3.8-10.6) k/uL RBC (4.30-5.90) m/uL Hgb (13.0-17.5) gm/dL Hct (39.0-53.0) % MCV (80.0-100.0) fL MCH (25.0-35.0) pg MCHC (31.0-37.0) g/dL RDW (11.5-15.5) % Plt Count (150-450) k/uL MPV Neutrophils % % Lymphocytes % % Monocytes % % Eosinophils % % Basophils % % Neutrophils # (1.3-7.7) k/uL Lymphocytes # (1.0-4.8) k/uL Monocytes # (0-1.0) k/uL Eosinophils # (0-0.7) k/uL Basophils # (0-0.2) k/uL PT (9.0-12.0) sec INR (<1.2) APTT (22.0-30.0) sec Sodium 142 (137-145) mmol/L Potassium 4.0 (3.5-5.1) mmol/L Chloride 112 H (98-107) mmol/L Carbon Dioxide 21 L (22-30) mmol/L Anion Gap 9 mmol/L BUN 16 (9-20) mg/dL Creatinine 0.81 (0.66-1.25) mg/dL Est GFR (CKD-EPI)AfAm >90 (>60 ml/min/1.73 sqM) Est GFR (CKD-EPI)NonAf >90 (>60 ml/min/1.73 sqM) Glucose 103 H (74-99) mg/dL Calcium 9.4 (8.4-10.2) mg/dL Total Bilirubin 0.3 (0.2-1.3) mg/dL AST 28 (17-59) U/L ALT 30 (4-49) U/L Alkaline Phosphatase 85 (38-126) U/L Total Protein 6.5 (6.3-8.2) g/dL Albumin 4.1 (3.5-5.0) g/dL Urine Color Urine Appearance (Clear) Urine pH (5.0-8.0) Ur Specific [place] (1.001-1.035) Urine Protein (Negative) Urine Glucose (UA) (Negative) Urine Ketones (Negative) Urine Blood (Negative) Urine Nitrite (Negative) Urine Bilirubin (Negative) Urine Urobilinogen (<2.0) mg/dL Ur Leukocyte Esterase (Negative) Urine RBC (0-5) /hpf Urine WBC (0-5) /hpf Urine Bacteria (None) /hpf Disposition Clinical Impression: Hematuria, Kidney stone Disposition: HOME SELF-CARE Condition: Stable Instructions (If sedation given, give patient instructions): Hematuria (ED) Additional Instructions: Please return to the Emergency Department if symptoms worsen or any other concerns. Prescriptions: Sulfamethox-Tmp 800-160Mg [Bactrim Ds] 1 each PO Q12HR #14 tab Is patient prescribed a controlled substance at d/c from ED?: No Referrals: El Regan MD [Primary Care Provider] - 1-2 days Rigo Reyna MD [STAFF PHYSICIAN] - 1-2 days Time of Disposition: 10:50
[2020-11-16] MEDS ORDERED: KETOROLAC 15 MG/ML 1 ML VIAL IVP STA (09:04)
[2020-11-16 09:19] LABS: Appearance,Urine Cloudy (Clear); Bacteria,Urine Occasional /hpf; Bilirubin,Urine Negative (Negative); Blood,Urine Large (Negative); Color,Urine Red; Glucose,Urine (UA) Negative (Negative); Ketones,Urine Negative (Negative); Leukocyte Esterase,Urine Small (Negative); Nitrite,Urine Negative (Negative); PH, Urine 5.5 (5.0-8.0); Protein,Urine 1+ (Negative); RBC,Urine >182 /hpf (0-5); Specific Gravity,Urine 1.022 (1.001-1.035); Urobilinogen,Urine <2.0 mg/dL (<2.0); WBC,Urine 15 /hpf (0-5)
[2020-11-16 09:29] LABS: ALT 30 U/L (4-49); AST 28 U/L (17-59); African American GFR (CKD) >90 (>60 ml/min/1.73 sqM); Albumin 4.1 g/dL (3.5-5.0); Alkaline Phosphatase 85 U/L (38-126); Anion Gap 9 mmol/L; Blood Urea Nitrogen 16 mg/dL (9-20); Calcium 9.4 mg/dL (8.4-10.2); Carbon Dioxide 21 mmol/L (22-30); Chloride 112 mmol/L (98-107); Glucose 103 mg/dL (74-99); Non-African American GFR(CKD) >90 (>60 ml/min/1.73 sqM); Sodium 142 mmol/L (137-145); Total Bilirubin 0.3 mg/dL (0.2-1.3); Total Protein 6.5 g/dL (6.3-8.2)
[2020-11-16 09:31] LABS: Basophils % (A) 0 %; Eosinophils % (A) 2 %; HCT 42.5 % (39.0-53.0); HGB 15.4 gm/dL (13.0-17.5); Lymphocytes % (A) 33 %; MCH 31.7 pg (25.0-35.0); MCHC 36.3 g/dL (31.0-37.0); MCV 87.5 fL (80.0-100.0); Mean Platelet Volume 8.5; Monocytes % (A) 7 %; Neutrophils % (A) 56 %; Platelet Count 232 k/uL (150-450); RBC 4.85 m/uL (4.30-5.90); RDW 12.3 % (11.5-15.5); WBC 7.4 k/uL (3.8-10.6)
[2020-11-16 09:32] LABS: Eosinophils # (A) 0.2 k/uL (0-0.7); Lymphocytes # (A) 2.4 k/uL (1.0-4.8); Monocytes # (A) 0.5 k/uL (0-1.0); Neutrophils # (A) 4.1 k/uL (1.3-7.7)
--- NOTE | 2020-11-16 09:39 | US ---
EXAMINATION TYPE: US kidneys/renal and bladder DATE OF EXAM: 11/16/2020 COMPARISON: CT 2019 CLINICAL HISTORY: Hematuria, kidney stones. Hematuria, history of kidney stones, history of lithotrip sy EXAM MEASUREMENTS: Right Kidney: 11.7 x 5.7 x 5.7 cm Left Kidney: 11.3 x 5.2 x 5.8 cm Right Kidney: 0.6cm echogenic focus inferior pole Left Kidney: 0.5cm echogenic focus mid pole Bladder: not fully distended Bilateral Jets seen: yes There is no evidence for hydronephrosis at this point in time. No nephrolithiasis is seen. No breann s are identified. Cortical medullary differentiation is maintained. The urinary bladder is anechoic. Bilateral ureteral jets are seen. IMPRESSION: Bilateral nephrolithiasis is nonobstructive
[2020-11-16 10:32] LABS: INR 0.9 (<1.2); Partial Thromboplastin Time 24.9 sec (22.0-30.0); Prothrombin Time 9.9 sec (9.0-12.0)
[2020-11-16] MEDS ORDERED: cefTRIAXone IN SWFI 1,000 MG/10 ML SYRINGE IVP STA (10:41)
[2020-11-16 11:24] VITALS: BP 128/71; PULSE 80
== END 2020-11-16 11:24 | disposition home or self-care (01) ==
LOC: EC 08:09
DX: N20.0 Calculus of kidney (principal); I10 Essential (primary) hypertension; F17.200 Nicotine dependence, unspecified, uncomplicated; Z79.1 Long term (current) use of non-steroidal anti-inflammatories (NSAID); Z79.899 Other long term (current) drug therapy
CPT/HCPCS: 36415; 80053; 85025; 85610; 85730; 81001; 87086; 76770; 99284; 96374; 96375; 96361 ×2; J2405; J1885

== ENCOUNTER 2020-12-13 01:38 | Emergency (ER) | payer BC ==
[2020-12-13 01:48] VITALS: TEMP 97.6
[2020-12-13] MEDS ORDERED: KETOROLAC 15 MG/ML 1 ML VIAL IVP STA (02:07)
[2020-12-13] MEDS ORDERED: ONDANSETRON 4 MG/2 ML VIAL IVP STA (02:07)
[2020-12-13] MEDS ORDERED: HYDROmorphone 0.5 MG/0.5 ML SYRINGE IVP STA (02:07)
[2020-12-13] MEDS ORDERED: SODIUM CHLORIDE 0.9% 1,000 ML IV STA (02:07)
--- NOTE | 2020-12-13 02:10 | ED ---
Abdominal Pain HPI - General Source: patient Mode of arrival: ambulatory Limitations: no limitations <Marcelle Dumas - Last Filed: 12/13/20 03:31> <Javier Sellers - Last Filed: 12/13/20 05:41> - General Chief Complaint: Abdominal Pain Stated Complaint: RT flank pain Time Seen by Provider: 12/13/20 02:05 - History of Present Illness Initial Comments: 30 year-old male patient presents to the emergency department for evaluation of right lower quadrant abdominal pain and right flank pain. States symptoms started four days ago. States he has history of kidney stones and this feels similar. States he has noticed blood in his urine. Denies dysuria, urinary urgency, or frequency. Denies fever or chills. Denies any nausea or vomiting. Denies any swelling to the testicles. Reports some tenderness to the left testicle which he states is common when he gets stones. Patient denies any recent rash, cough, shortness of breath, chest pain, diarrhea, constipation, back pain, numbness, tingling, dizziness, weakness, headache, visual changes, or any other complaints. (Marcelle Dumas) - Related Data Home Medications Medication Instructions Recorded Confirmed Dextroamphetamine/Amphetamine 50 mg PO DAILY 09/28/18 11/16/20 [Adderall Xr] Ibuprofen [Motrin Ib] 400 mg PO Q8H PRN 11/16/20 11/16/20 Omeprazole 40 mg PO DAILY 11/16/20 11/16/20 Previous Rx's Medication Instructions Recorded Sulfamethox-Tmp 800-160Mg [Bactrim 1 each PO Q12HR #14 tab 11/16/20 Ds] Tamsulosin HCl [Flomax] 0.4 mg PO DAILY #7 cap 12/13/20 Allergies Allergy/AdvReac Type Severity Reaction Status Date / Time No Known Allergies Allergy Verified 12/13/20 01:47 Review of Systems ROS Other: All systems not noted in ROS Statement are negative. <Marcelle Dumas - Last Filed: 12/13/20 03:31> ROS Other: All systems not noted in ROS Statement are negative. <Javier Sellers - Last Filed: 12/13/20 05:41> ROS Statement: Those systems with pertinent positive or pertinent negative responses have been documented in the HPI. Past Medical History Past Medical History: Hypertension Additional Past Medical History / Comment(s): History of previous back pain secondary to an injury in [place] History of Any Multi-Drug Resistant Organisms: None Reported Past Surgical History: Adenoidectomy, Orthopedic Surgery, Tonsillectomy Additional Past Surgical History / Comment(s): foot surgery from shrapnel Past Anesthesia/Blood Transfusion Reactions: No Reported Reaction Past Psychological History: PTSD Smoking Status: Current some day smoker Past Alcohol Use History: Occasional Past Drug Use History: None Reported <Marcelle Dumas - Last Filed: 12/13/20 03:31> General Exam Limitations: no limitations General appearance: alert, in no apparent distress, other (Physical well- developed, well-nourished adult male patient in mild distress related to pain. Vital signs upon presentation are temperature 97.6F, pulse 80, respirations 20, blood pressure 127/86, pulse ox 96% on room air.) Eye exam: Present: normal appearance, PERRL, EOMI. Absent: scleral icterus, conjunctival injection, periorbital swelling ENT exam: Present: normal exam, normal oropharynx, mucous membranes moist Respiratory exam: Present: normal lung sounds bilaterally. Absent: respiratory distress, wheezes, rales, rhonchi, stridor Cardiovascular Exam: Present: regular rate, normal rhythm, normal heart sounds. Absent: systolic murmur, diastolic murmur, rubs, gallop, clicks GI/Abdominal exam: Present: soft, tenderness (right lower quadrant), normal bowel sounds. Absent: distended, guarding, rebound, rigid Back exam: Present: normal inspection, CVA tenderness (R). Absent: CVA tenderness (L) Neurological exam: Present: alert, oriented X3, CN II-XII intact Psychiatric exam: Present: normal affect, normal mood Skin exam: Present: warm, dry, intact, normal color. Absent: rash <Marcelle Dumas - Last Filed: 12/13/20 03:31> General appearance: alert, in no apparent distress Head exam: Present: atraumatic, normocephalic, normal inspection Eye exam: Present: normal appearance, PERRL, EOMI. Absent: scleral icterus, conjunctival injection, periorbital swelling ENT exam: Present: normal exam, mucous membranes moist Neck exam: Present: normal inspection. Absent: tenderness, meningismus, lymphadenopathy Respiratory exam: Present: normal lung sounds bilaterally. Absent: respiratory distress, wheezes, rales, rhonchi, stridor Cardiovascular Exam: Present: regular rate, normal rhythm, normal heart sounds. Absent: systolic murmur, diastolic murmur, rubs, gallop, clicks GI/Abdominal exam: Present: soft, normal bowel sounds. Absent: distended, tenderness, guarding, rebound, rigid Extremities exam: Present: normal inspection, full ROM, normal capillary refill. Absent: tenderness, pedal edema, joint swelling, calf tenderness Back exam: Present: normal inspection Neurological exam: Present: alert, oriented X3, CN II-XII intact Psychiatric exam: Present: normal affect, normal mood Skin exam: Present: warm, dry, intact, normal color. Absent: rash <Javier Sellers - Last Filed: 12/13/20 05:41> Course <Javier Sellers - Last Filed: 12/13/20 05:41> Vital Signs 12/13/20 12/13/20 12/13/20 01:47 02:29 03:00 Temperature 97.6 F Pulse Rate 80 65 75 Respiratory 20 22 20 Rate Blood Pressure 127/86 143/99 138/98 O2 Sat by Pulse 96 95 97 Oximetry 12/13/20 04:00 Temperature Pulse Rate 70 Respiratory 20 Rate Blood Pressure 153/77 O2 Sat by Pulse 97 Oximetry - Reevaluation(s) Reevaluation #1: 12/13/20 05:41 Medical records reviewed (Javier Sellers) Reevaluation #2: 12/13/20 05:41 Patient informed of results and questions answered (Javier Sellers) Medical Decision Making - Lab Data Result diagrams: 12/13/20 02:27 12/13/20 02:27 <Marcelle Dumas - Last Filed: 12/13/20 03:31> - Lab Data Result diagrams: 12/13/20 02:27 12/13/20 02:27 <Javier Sellers - Last Filed: 12/13/20 05:41> - Medical Decision Making 30 male for kidney stone, history of kidney stones. Given kidney stone pain control today and patient can be discharged home (Javier Sellers) - Lab Data Lab Results 12/13/20 12/13/20 12/13/20 Range/Units 02:27 02:27 02:27 WBC 11.7 H (3.8-10.6) k/uL RBC 5.38 (4.30-5.90) m/uL Hgb 16.1 (13.0-17.5) gm/dL Hct 46.8 (39.0-53.0) % MCV 87.1 (80.0-100.0) fL MCH 30.0 (25.0-35.0) pg MCHC 34.4 (31.0-37.0) g/dL RDW 13.0 (11.5-15.5) % Plt Count 233 (150-450) k/uL MPV 8.4 Neutrophils % 76 % Lymphocytes % 17 % Monocytes % 5 % Eosinophils % 1 % Basophils % 0 % Neutrophils # 8.9 H (1.3-7.7) k/uL Lymphocytes # 2.0 (1.0-4.8) k/uL Monocytes # 0.6 (0-1.0) k/uL Eosinophils # 0.1 (0-0.7) k/uL Basophils # 0.0 (0-0.2) k/uL Sodium 140 (137-145) mmol/L Potassium 4.9 (3.5-5.1) mmol/L Chloride 107 (98-107) mmol/L Carbon Dioxide 24 (22-30) mmol/L Anion Gap 9 mmol/L BUN 18 (9-20) mg/dL Creatinine 1.56 H (0.66-1.25) mg/dL Est GFR (CKD-EPI)AfAm 67 (>60 ml/min/1.73 sqM) Est GFR (CKD-EPI)NonAf 58 (>60 ml/min/1.73 sqM) Glucose 90 (74-99) mg/dL Calcium 10.0 (8.4-10.2) mg/dL Total Bilirubin 0.5 (0.2-1.3) mg/dL AST 28 (17-59) U/L ALT 28 (4-49) U/L Alkaline Phosphatase 80 (38-126) U/L Total Protein 6.9 (6.3-8.2) g/dL Albumin 4.4 (3.5-5.0) g/dL Lipase 173 (23-300) U/L Urine Color Yellow Urine Appearance Cloudy (Clear) Urine pH 7.0 (5.0-8.0) Ur Specific [place] 1.026 (1.001-1.035) Urine Protein Negative (Negative) Urine Glucose (UA) Negative (Negative) Urine Ketones Negative (Negative) Urine Blood Negative (Negative) Urine Nitrite Negative (Negative) Urine Bilirubin Negative (Negative) Urine Urobilinogen <2.0 (<2.0) mg/dL Ur Leukocyte Esterase Negative (Negative) Urine RBC 2 (0-5) /hpf Urine WBC 2 (0-5) /hpf Amorphous Sediment Rare H (None) /hpf Urine Mucus Rare H (None) /hpf Disposition Is patient prescribed a controlled substance at d/c from ED?: No <Marcelle Dumas - Last Filed: 12/13/20 03:31> Is patient prescribed a controlled substance at d/c from ED?: No <Javier Sellers - Last Filed: 12/13/20 05:41> Clinical Impression: Right flank pain, Intractable pain, Kidney stone, Kidney stone on right side Disposition: HOME SELF-CARE Condition: Good Instructions (If sedation given, give patient instructions): Kidney Stones (ED) Additional Instructions: Increase fluids per follow up with urologist for further evaluation as soon as possible. Return to the emergency department for any new, worsening, or concerning symptoms. Prescriptions: Tamsulosin HCl [Flomax] 0.4 mg PO DAILY #7 cap Referrals: El Regan MD [Primary Care Provider] - 1-2 days
[2020-12-13 02:37] LABS: Basophils % (A) 0 %; Eosinophils # (A) 0.1 k/uL (0-0.7); Eosinophils % (A) 1 %; HCT 46.8 % (39.0-53.0); HGB 16.1 gm/dL (13.0-17.5); Lymphocytes % (A) 17 %; MCHC 34.4 g/dL (31.0-37.0); MCV 87.1 fL (80.0-100.0); Mean Platelet Volume 8.4; Monocytes # (A) 0.6 k/uL (0-1.0); Monocytes % (A) 5 %; Neutrophils # (A) 8.9 k/uL (1.3-7.7); Neutrophils % (A) 76 %; Platelet Count 233 k/uL (150-450); RBC 5.38 m/uL (4.30-5.90); WBC 11.7 k/uL (3.8-10.6)
[2020-12-13] MEDS ORDERED: HYDROmorphone 1 MG/ML 1 ML SYRINGE IVP STA (03:00)
[2020-12-13 03:02] LABS: Albumin 4.4 g/dL (3.5-5.0); Potassium 4.9 mmol/L (3.5-5.1); Total Bilirubin 0.5 mg/dL (0.2-1.3); Total Protein 6.9 g/dL (6.3-8.2)
--- NOTE | 2020-12-13 03:08 | XR ---
EXAMINATION TYPE: XR KUB DATE OF EXAM: 12/13/2020 COMPARISON: NONE HISTORY: Flank pain TECHNIQUE: 2 views upright FINDINGS: There is a 5 mm calcification above the upper pole right kidney. This could be surgical cli p. There is no sign of intestinal obstruction or pneumoperitoneum. Fecal pattern is normal. Lung base s are clear. There are no pathologic calcifications over the kidneys. IMPRESSION: Nonacute abdomen.
[2020-12-13] MEDS ORDERED: ACET/COD 300 MG/30 MG STARTER PACK 6 TAB BTL PO STA (03:31)
[2020-12-13] MEDS ORDERED: TAMSULOSIN 0.4 MG CAP.ER.24H PO STA (03:31)
[2020-12-13 04:04] VITALS: PULSE 70
[2020-12-13] MEDS ORDERED: MAG HYDROX/AL HYDROX/SIMETH 30 ML, HYOSCYAMINE ELIXIR 10 ML PO STA ×2 (04:22)
[2020-12-13] MEDS ORDERED: FAMOTIDINE 20 MG/2 ML VIAL IV STA (04:22)
[2020-12-13 05:08] LABS: Amorphous Sediment,Urine Rare /hpf; Appearance,Urine Cloudy (Clear); Bilirubin,Urine Negative (Negative); Blood,Urine Negative (Negative); Color,Urine Yellow; Glucose,Urine (UA) Negative (Negative); Ketones,Urine Negative (Negative); Leukocyte Esterase,Urine Negative (Negative); Mucus,Urine Rare /hpf; Nitrite,Urine Negative (Negative); Protein,Urine Negative (Negative); RBC,Urine 2 /hpf (0-5); Specific Gravity,Urine 1.026 (1.001-1.035); Urobilinogen,Urine <2.0 mg/dL (<2.0); WBC,Urine 2 /hpf (0-5)
[2020-12-13 06:58] VITALS: BP 138/66; RESP 18
== END 2020-12-13 06:58 | disposition home or self-care (01) ==
LOC: EC 01:38
DX: N20.0 Calculus of kidney (principal); I10 Essential (primary) hypertension; F17.200 Nicotine dependence, unspecified, uncomplicated
CPT/HCPCS: 36415; 80053; 83690; 85025; 81001; 74018; 99284; 96374; 96375; 96361; 96376; J2405; J1170 ×2; J1885; 99283

== ENCOUNTER 2022-11-06 03:43 | Emergency (ER) | payer BC, OTHER ==
[2022-11-06 03:50] VITALS: TEMP 97.6
[2022-11-06] MEDS ORDERED: TETRACAINE 0.5% OPHTH (PF) DROPS 4 ML BTL LEFT EYE ONE (04:03)
--- NOTE | 2022-11-06 04:53 | ED ---
Eye Problem HPI - General Chief complaint: Eye Problems Stated complaint: LEFT EYE INJURY Time Seen by Provider: 11/06/22 04:02 Source: patient Mode of arrival: ambulatory Limitations: no limitations - History of Present Illness MD chief complaint: foreign body Onset/Timin -: hour(s) Onset Description: sudden Location: left eye Place: work If Injury: other Eye Symptoms: foreign body sensation Severity: moderate If Pain, Quality: other Consistency: constant Context: contact lens use Treatments Prior to Arrival: removed contact lens - Related Data Patient Tetanus UTD: Yes Home Medications Medication Instructions Recorded Confirmed Dextroamphetamine/Amphetamine 50 mg PO DAILY 09/28/18 11/16/20 [Adderall Xr] Ibuprofen [Motrin Ib] 400 mg PO Q8H PRN 11/16/20 11/16/20 Omeprazole 40 mg PO DAILY 11/16/20 11/16/20 Previous Rx's Medication Instructions Recorded Sulfamethox-Tmp 800-160Mg [Bactrim 1 each PO Q12HR #14 tab 11/16/20 Ds] Ondansetron Odt [Zofran ODT] 4 mg PO Q8HR PRN #10 tab 12/13/20 Tamsulosin HCl [Flomax] 0.4 mg PO DAILY #7 cap 12/13/20 Allergies Allergy/AdvReac Type Severity Reaction Status Date / Time No Known Allergies Allergy Verified 11/06/22 03:50 Review of Systems ROS Statement: Those systems with pertinent positive or pertinent negative responses have been documented in the HPI. ROS Other: All systems not noted in ROS Statement are negative. Constitutional: Denies: fever Eyes: Reports: as per HPI, eye pain. Denies: vision change Neurological: Denies: headache Past Medical History Past Medical History: Hypertension Additional Past Medical History / Comment(s): History of previous [facility] pain [facility] History of Any Multi-Drug Resistant Organisms: None Reported Past Surgical History: Adenoidectomy, Orthopedic Surgery, Tonsillectomy Additional Past Surgical History / Comment(s): foot surgery from shrapnel Past Anesthesia/Blood Transfusion Reactions: No Reported Reaction Past Psychological History: PTSD Smoking Status: Former smoker Past Alcohol Use History: Rare Past Drug Use History: Marijuana General Exam Limitations: no limitations General appearance: alert, in no apparent distress Head exam: Present: atraumatic, normocephalic Eye exam: Present: normal appearance, PERRL, EOMI. Absent: scleral icterus, conjunctival injection, nystagmus Expanded Pupils: Regular, Round: Left, Reactive: Left Sclera/Conjunctival: Injection: Left Respiratory exam: Present: normal lung sounds bilaterally. Absent: respiratory distress, wheezes, rales, rhonchi, stridor Cardiovascular Exam: Present: regular rate, normal rhythm, normal heart sounds. Absent: systolic murmur, diastolic murmur, rubs, gallop Course Vital Signs 11/06/22 11/06/22 03:44 05:27 Temperature 97.6 F Pulse Rate 69 81 Respiratory 18 16 Rate Blood Pressure 124/76 142/74 O2 Sat by Pulse 95 98 Oximetry Medical Decision Making - Medical Decision Making This patient is 32-year-old man with foreign body sensation. I instilled topical anesthetic. I then further examined the eye and everted both lids. The eye was irrigated with saline under pressure, and then I swept under the lids with cotton applicator. Following this fluorescein stain was introduced and inspection did not reveal any residual foreign body. There was some abrasion to the inferior aspect of the cornea not over the visual surface. There was also some uptake of the bulbar conjunctiva inferiorly. The patient was observed for an interval to ensure that there was improvement as the topical anesthesia wore off. The patient is feeling better than on arrival. We discussed appropriate further care and follow-up including use of erythromycin ointment and also ophthalmology follow-up. He understands no contact wearing until he is cleared. There is no evidence of corneal ulceration. Was pt. sent in by a medical professional or institution (TIANNA Jordan, LOAN OPERATIONS SPECIALIST, urgent care, hospital, or half-way...) When possible be specific @ -[No] Did you speak to anyone other than the patient for history (EMS, parent, family, police, friend...)? What history was obtained from this source @ -[No] Did you review nursing and triage notes (agree or disagree)? Why? @ -[I reviewed and agree with nursing and triage notes] Were old charts reviewed (outside hosp., previous admission, EMS record, old EKG, old radiological studies, urgent care reports/EKG's, half-way records)? Report findings @ -[No old charts were reviewed] Differential Diagnosis (chest pain, altered mental status, abdominal pain women, abdominal pain men, vaginal bleeding, weakness, fever, dyspnea, syncope, headache, dizziness, GI bleed, back pain, seizure, CVA, palpatations, mental health, musculoskeletal)? @ -[The differential diagnosis includes foreign body, corneal abrasion, corneal ulceration, acute glaucoma, iritis, uveitis , globe penetration, conjunctivitis, amongst other conditions EKG interpreted by me (3pts min.). @ -[ X-rays interpreted by me (1pt min.). @ -[None done] CT interpreted by me (1pt min.). @ -[None done] U/S interpreted by me (1pt. min.). @ -[None done] What testing was considered but not performed or refused? (CT, X-rays, U/S, labs)? Why? @ -[None] What meds were considered but not given or refused? Why? @ -[None] Did you discuss the management of the patient with other professionals (professionals i.e. , PA, LOAN OPERATIONS SPECIALIST, lab, RT, psych nurse, social director, window tinter, teacher, financial compliance officer, director of casework services)? Give summary @ -[No] Was smoking cessation discussed for >3mins.? @ -[No] Was critical care preformed (if so, how long)? @ -[No] Were there social determinants of health that impacted care today? How? (Homelessness, low income, unemployed, alcoholism, drug addiction, transportation, low edu. Level, literacy, decrease access to med. care, penitentiary, rehab)? @ -[No] Was there de-escalation of care discussed even if they declined (Discuss DNR or withdrawal of care, Hospice)? DNR status @ -[No] What co-morbidities impacted this encounter? (DM, HTN, Smoking, COPD, CAD, Cancer, CVA, ARF, Chemo, Hep., AIDS, mental health diagnosis, sleep apnea, morbid obesity)? @ -[None] Was patient admitted / discharged? Hospital course, mention meds given and route, prescriptions, significant lab abnormalities, going to OR and other pertinent info. @ -[Discharged with follow-up with ophthalmology Undiagnosed new problem with uncertain prognosis? @ -[No] Drug Therapy requiring intensive monitoring for toxicity (Heparin, Nitro, Insulin, Cardizem)? @ -[No] Were any procedures done? @ -[No] Diagnosis/symptom? @ -[Acute corneal abrasion, uncomplicated Acute, or Chronic, or Acute on Chronic? @ -[default] Uncomplicated (without systemic symptoms) or Complicated (systemic symptoms)? @ -[default] Side effects of treatment? @ -[No] Exacerbation, Progression, or Severe Exacerbation? @ -[No] Poses a threat to life or bodily function? How? (Chest pain, [place], [place], pneumonia, PE, COPD, DKA, ARF, appy, cholecystitis, CVA, Diverticulitis, Homicidal, Suicidal, threat to staff... and all critical care pts) @ -[No] Disposition Clinical Impression: Corneal abrasion Disposition: HOME SELF-CARE Condition: Good Instructions (If sedation given, give patient instructions): Abrasion (ED) Additional Instructions: As we discussed, no wearing of contact lenses until all symptoms have resolved and you are cleared. Is patient prescribed a controlled substance at d/c from ED?: No Referrals: El Regan MD [Primary Care Provider] - 1-2 days Gilbert Terrazas MD [STAFF PHYSICIAN] - 1-2 days Forms: Work/School Release
[2022-11-06] MEDS ORDERED: ERYTHROMYCIN 5 MG/GM OPHTH OINT 3.5 GM TUBE LEFT EYE ONE (05:00)
[2022-11-06 05:32] VITALS: BP 142/74; PULSE 81; RESP 16
== END 2022-11-06 05:32 | disposition home or self-care (01) ==
LOC: EC 03:43
DX: S05.02XA Injury of conjunctiva and corneal abrasion without foreign body, left eye, initial encounter (principal); I10 Essential (primary) hypertension; F12.90 Cannabis use, unspecified, uncomplicated; Z87.891 Personal history of nicotine dependence; Z79.899 Other long term (current) drug therapy; W45.8XXA Other foreign body or object entering through skin, initial encounter
CPT/HCPCS: 99283

== ENCOUNTER 2023-06-07 01:27 | Emergency (ER) | payer BC, OTHER ==
[2023-06-07 01:42] VITALS: RESP 19; TEMP 98.1
[2023-06-07] MEDS ORDERED: MORPHINE SULFATE 2 MG/ML SYRINGE IVP ONE ×2 (02:09→03:49)
[2023-06-07] MEDS ORDERED: ONDANSETRON 4 MG/2 ML VIAL IVP STA (02:09)
[2023-06-07] MEDS ORDERED: ACET/COD 300 MG/30 MG STARTER PACK 6 TAB BTL PO STA (03:47)
--- NOTE | 2023-06-07 03:47 | ED ---
General Adult HPI - General Chief complaint: Head Injury Stated complaint: Head injury Time Seen by Provider: 06/07/23 01:48 Source: patient, RN notes reviewed Mode of arrival: ambulatory - History of Present Illness Initial comments: 33-year-old male with no significant past medical history presents the emergency department with a chief complaint of head injury. She reports that he was at work when a 50 pound object hit him in the head. He denies any loss of consciousness. Denies anticoagulant use. He is admitting headache with nausea and vomiting. She denies any neck pain or numbness or tingling in any extremities. - Related Data Home Medications Medication Instructions Recorded Confirmed Dextroamphetamine/Amphetamine 50 mg PO DAILY 09/28/18 11/16/20 [Adderall Xr] Ibuprofen [Motrin Ib] 400 mg PO Q8H PRN 11/16/20 11/16/20 Omeprazole 40 mg PO DAILY 11/16/20 11/16/20 Previous Rx's Medication Instructions Recorded Sulfamethox-Tmp 800-160Mg [Bactrim 1 each PO Q12HR #14 tab 11/16/20 Ds] Ondansetron Odt [Zofran ODT] 4 mg PO Q8HR PRN #10 tab 12/13/20 Tamsulosin HCl [Flomax] 0.4 mg PO DAILY #7 cap 12/13/20 Allergies Allergy/AdvReac Type Severity Reaction Status Date / Time No Known Allergies Allergy Verified 11/06/22 03:50 Review of Systems ROS Statement: Those systems with pertinent positive or pertinent negative responses have been documented in the HPI. ROS Other: All systems not noted in ROS Statement are negative. Past Medical History Past Medical History: Hypertension Additional Past Medical History / Comment(s): History of previous back pain secondary to an injury in [place] History of Any Multi-Drug Resistant Organisms: None Reported Past Surgical History: Adenoidectomy, Orthopedic Surgery, Tonsillectomy Additional Past Surgical History / Comment(s): foot surgery from shrapnel Past Anesthesia/Blood Transfusion Reactions: No Reported Reaction Past Psychological History: PTSD Smoking Status: Former smoker Past Alcohol Use History: Rare Past Drug Use History: Marijuana General Exam - General Exam Comments Initial Comments: General: Alert, in no acute distress Head: atraumatic normocephalic. Eyes PERRL, EOMI intact, mucous membranes moist Respiratory: Lungs clear to auscultation bilaterally Cardiovascular: Heart rate regular rate and rhythm Abdominal: Soft without guarding or rebound Extremities: Normal inspection with full range of motion and normal capillary refill Neuroogic: alert and oriented 3, CN II-XII intact, able to ambulate with steady gait Skin: warm dry and intact with normal color Course Vital Signs 06/07/23 06/07/23 06/07/23 01:31 02:25 04:12 Temperature 98.1 F Pulse Rate 80 67 63 Respiratory 19 19 19 Rate Blood Pressure 135/80 113/79 125/79 O2 Sat by Pulse 96 98 99 Oximetry - Reevaluation(s) Reevaluation #1: 06/07/23 03:46 Should reevaluated. Admits symptomatic improvement status post medications. Medical Decision Making - Medical Decision Making Was pt. sent in by a medical professional or institution (, PA, SOFTWARE SPECIALIST, urgent care, hospital, or intermediate...) When possible be specific @ -[No] Did you speak to anyone other than the patient for history (EMS, parent, family, police, friend...)? What history was obtained from this source @ -[No] Did you review nursing and triage notes (agree or disagree)? Why? @ -[I reviewed and agree with nursing and triage notes] Were old charts reviewed (outside hosp., previous admission, EMS record, old EKG, old radiological studies, urgent care reports/EKG's, intermediate records)? Report findings @ -[No old charts were reviewed] Differential Diagnosis (chest pain, altered mental status, abdominal pain women, abdominal pain men, vaginal bleeding, weakness, fever, dyspnea, syncope, headache, dizziness, GI bleed, back pain, seizure, CVA, palpatations, mental health, musculoskeletal)? @ -[not applicable] EKG interpreted by me (3pts min.). @ -[As above] X-rays interpreted by me (1pt min.). @ -[None done] CT interpreted by me (1pt min.). @ -Yes does not reveal any midline shift or intracranial process. U/S interpreted by me (1pt. min.). @ -[None done] What testing was considered but not performed or refused? (CT, X-rays, U/S, labs)? Why? @ -[None] What meds were considered but not given or refused? Why? @ -[None] Did you discuss the management of the patient with other professionals (professionals i.e. , PA, SOFTWARE SPECIALIST, lab, RT, psych nurse, psych social worker, sand bobber, teacher, special technical operations officer, casework manager)? Give summary @ -[No] Was smoking cessation discussed for >3mins.? @ -[No] Was critical care preformed (if so, how long)? @ -[No] Were there social determinants of health that impacted care today? How? (Homelessness, low income, unemployed, alcoholism, drug addiction, tr ansportation, low edu. Level, literacy, decrease access to med. care, snf, rehab)? @ -[No] Was there de-escalation of care discussed even if they declined (Discuss DNR or withdrawal of care, Hospice)? DNR status @ -[No] What co-morbidities impacted this encounter? (DM, HTN, Smoking, COPD, CAD, Cancer, CVA, ARF, Chemo, Hep., AIDS, mental health diagnosis, sleep apnea, morbid obesity)? @ -[None] Was patient admitted / discharged? Hospital course, mention meds given and route, prescriptions, significant lab abnormalities, going to OR and other pertinent info. @ Discharged. This is a 33-year-old male presents the emergency department with a chief complaint of head injury. Patient had thorough history and physical exam. Mild swelling in the frontal forehead. No focal neuro deficits noted on exam. Patient able to ambulate. Patient CT imaging which was negative. Discussed results with patient. Patient given morphine and Zofran with symptomatic improvement. Discharged in stable condition. Case is discussed with Dr. Miner, [facility] who agrees with plan of care Undiagnosed new problem with uncertain prognosis? @ -[No] Drug Therapy requiring intensive monitoring for toxicity (Heparin, Nitro, Insu flora, Cardizem)? @ -[No] Were any procedures done? @ -[No] Diagnosis/symptom? @ -Closed Head Injury - Headache Acute, or Chronic, or Acute on Chronic? @ -Acute Uncomplicated (without systemic symptoms) or Complicated (systemic symptoms)? @ -Uncomplicated Side effects of treatment? @ -[No] Exacerbation, Progression, or Severe Exacerbation? @ -[No] Poses a threat to life or bodily function? How? (Chest pain, [place], [place], pneumonia, PE, COPD, DKA, ARF, appy, cholecystitis, CVA, Diverticulitis, Homicidal, Suicidal, threat to staff... and all critical care pts) @ -Low likelihood Disposition Clinical Impression: Closed head injury Disposition: HOME SELF-CARE Condition: Stable Instructions (If sedation given, give patient instructions): Concussion (ED) Additional Instructions: The monitor symptoms closely Return to the nearest emergency department if worsening headache, some vision changes or vision loss develop Is patient prescribed a controlled substance at d/c from ED?: No Referrals: El Regan MD [Primary Care Provider] - 1-2 days Time of Disposition: 03:47
[2023-06-07] MEDS ORDERED: ONDANSETRON 4 MG ODT STARTER PACK 2 TAB BTL PO STA (03:49)
[2023-06-07 04:39] VITALS: BP 125/79; PULSE 63
--- NOTE | 2023-06-07 06:20 | CT ---
EXAM: CT Head Without Intravenous Contrast CLINICAL HISTORY: ITS.REASON CT Reason: pain TECHNIQUE: Axial computed tomography images of the head/brain without intravenous contrast. CTDI is 45.2 mGy and DLP is 1125 mGy-cm. This CT exam was performed using one or more of the following dose reduction techniques: automated exposure control, adjustment of the mA and/or kV according to patient size, and/or use of iterative reconstruction technique. COMPARISON: No relevant prior studies available. FINDINGS: Brain: Unremarkable. No hemorrhage. No significant white matter disease. No edema. Ventricles: Unremarkable. No ventriculomegaly. Bones/joints: Unremarkable. No acute fracture. Soft tissues: Unremarkable. Sinuses: Unremarkable as visualized. No acute sinusitis. Mastoid air cells: Unremarkable as visualized. No mastoid effusion. IMPRESSION: No evidence of acute intracranial pathology. EXAM: CT Cervical Spine Without Intravenous Contrast CLINICAL HISTORY: ITS.REASON CT Reason: pain TECHNIQUE: Axial computed tomography images of the cervical spine without intravenous contrast. CTDI is 30.4 mGy and DLP is 889 mGy-cm. This CT exam was performed using one or more of the following dose reduction techniques: automated exposure control, adjustment of the mA and/or kV according to patient size, and/or use of iterative reconstruction technique. COMPARISON: No relevant prior studies available. FINDINGS: Vertebrae: Unremarkable. No acute fracture. Discs/spinal canal/neural foramina: No acute findings. No spinal canal stenosis. Soft tissues: Prominent cervical lymph nodes there is a 23.3 mm x 21.3 mm cyst within the right vallecula. IMPRESSION: No evidence of acute cervical spine pathology.
== END 2023-06-07 04:13 | disposition home or self-care (01) ==
LOC: EC 01:27
DX: S09.90XA Unspecified injury of head, initial encounter (principal); I10 Essential (primary) hypertension; Z87.891 Personal history of nicotine dependence; F12.90 Cannabis use, unspecified, uncomplicated; Z79.899 Other long term (current) drug therapy; W20.8XXA Other cause of strike by thrown, projected or falling object, initial encounter; Y99.0 Civilian activity done for income or pay
CPT/HCPCS: 72125; 70450; 99284; 96374; 96375; 96376; J2405; J2270; S0119

== ENCOUNTER 2023-09-02 06:02 | Day surgery (SDC) | payer BC, OTHER ==
[2023-08-28 09:27] VITALS: BMI 43.3
[2023-09-02] MEDS ORDERED: LIDOCAINE 1% (10MG/ML) FOR IV START INTRADERMA PRN (06:16)
[2023-09-02] MEDS: LACTATED RINGERS 1,000 ML IV SCH (06:25)
[2023-09-02] MEDS: DEXAMETHASONE SOD PHOSPHATE 4 MG/ML 1 ML VIAL IV ONE (07:00)
[2023-09-02] MEDS: ACETAMINOPHEN TAB 500 MG TAB PO PRN (07:00)
[2023-09-02] MEDS: ONDANSETRON 4 MG/2 ML VIAL IVP ONE (07:00)
[2023-09-02] MEDS: fentaNYL (PF) 50 MCG/ML 2 ML AMP IVP ONE (07:02)
[2023-09-02] MEDS: MIDAZOLAM 2 MG/2 ML VIAL IV PRN (07:02)
--- NOTE | 2023-09-02 07:19 | P.ANPRN ---
Procedure Note - Anesthesia - Nerve Block Performed Bilateral Erector Spinae Single Time Out Performed: Yes Date of Procedure: 09/02/23 Procedure Start Time: :02 Procedure Stop Time: 07:10 Location of Patient: PreOp Indication: Acute Post-Operative Pain, Analgesia, Requested by Surgeon Sedation Type: Sedate with meaningful contact maintained Preparation: Sterile Prep Position: Prone Catheter: None Needle Types: Pajunk Needle Gauge: 21 Ultrasound used to visualize needle placement: Yes Ultrasound used to observe medication spread: Yes Injectate: 0.5% Ropivacaine (see comment for volume) (Ropiv 20ml+decadron 4mg) Blood Aspirated: No Pain Paresthesia on Injection Noted: No Resistance on Injection: Normal Image Stored and Saved: Yes Events: Uneventful and Well Tolerated
[2023-09-02] MEDS: HEPARIN SODIUM,PORCINE 5,000 UNIT/ML 1 ML VIAL SQ PRN (07:23)
[2023-09-02] MEDS ORDERED: NEOSTIGMINE 1 MG/ML 10 ML VIAL ONE (07:24)
[2023-09-02] MEDS ORDERED: SUCCINYLCHOLINE CHLORIDE 200 MG/10 ML VIAL IV ONE (07:24)
[2023-09-02] MEDS ORDERED: DEXAMETHASONE SOD PHOSPHATE 4 MG/ML 1 ML VIAL ONE (07:24)
[2023-09-02] MEDS ORDERED: ROCURONIUM 10 MG/ML (5 ML VIAL) IV ONE (07:24)
[2023-09-02] MEDS ORDERED: KETAMINE HCL IN 0.9 % NACL 50 MG/5 ML SYRINGE ONE (07:24)
[2023-09-02] MEDS ORDERED: fentaNYL (PF) 50 MCG/ML 2 ML AMP ONE (07:24)
[2023-09-02] MEDS ORDERED: ROPIVACAINE 5 MG/ML 30 ML VIAL ONE (07:24)
[2023-09-02] MEDS ORDERED: HYDROmorphone (PF) 1 MG/ML ONE (07:24)
[2023-09-02] MEDS ORDERED: KETOROLAC 15 MG/ML 1 ML VIAL ONE (07:24)
[2023-09-02] MEDS ORDERED: PROPOFOL 10 MG/ML 20 ML VIAL IV ONE (07:24)
[2023-09-02] MEDS ORDERED: LIDOCAINE 1% INJ 10MG/ML (20 ML MDV) ONE (07:24)
[2023-09-02] MEDS ORDERED: GLYCOPYRROLATE 0.2 MG/ML 2 ML VIAL ONE (07:24)
[2023-09-02 07:27] LABS: Basophils # (A) 0.1 k/uL (0-0.2); Basophils % (A) 1 %; Eosinophils # (A) 0.1 k/uL (0-0.7); Eosinophils % (A) 1 %; HCT 46.7 % (39.0-53.0); HGB 16.4 gm/dL (13.0-17.5); Lymphocytes # (A) 2.1 k/uL (1.0-4.8); Lymphocytes % (A) 20 %; MCH 30.1 pg (25.0-35.0); MCHC 35.2 g/dL (31.0-37.0); MCV 85.6 fL (80.0-100.0); Mean Platelet Volume 8.5; Monocytes # (A) 0.6 k/uL (0-1.0); Monocytes % (A) 6 %; Neutrophils # (A) 7.7 k/uL (1.3-7.7); Neutrophils % (A) 72 %; Platelet Count 327 k/uL (150-450); RBC 5.45 m/uL (4.30-5.90); WBC 10.8 k/uL (3.8-10.6)
[2023-09-02] MEDS: ceFAZolin 3 GM in SODIUM CHLORIDE 0.9% 100 ML IVPB PRN (07:29)
[2023-09-02] MEDS: LIDOCAINE 1%/EPI 1:200,000 MPF 10 ML VIAL SQ ONE ×2 (07:48)
[2023-09-02] MEDS: BUPIVACAINE (PF) 0.25% 30 ML VIAL SQ ONE ×2 (07:48)
--- NOTE | 2023-09-02 08:38 | P.OP ---
Date of Procedure: 09/02/23 Preoperative Diagnosis: Incarcerated umbilical hernia Postoperative Diagnosis: Incarcerated umbilical hernia Procedure(s) Performed: Laparoscopic robotic system repair of incarcerated we'll hernia Partial omentectomy Transversus abdominis plane block Anesthesia: TIAN Surgeon: Fuentes Munson Estimated Blood Loss (ml): 5 Pathology: other (Omentum/hernia sac) Condition: stable Disposition: PACU Description of Procedure: The patient was placed on the operating table in the supine position. He received general anesthesia. His abdomen was prepped and draped usual fashion. Using a 5 mm optical trocar under direct visualization the peritoneal cavity was entered in the left upper quadrant. The abdomen was then insufflated. The laparoscope was placed back into the perineal cavity. Next a 8 mm robotic trocar was placed in the left lower quadrant and a 12 mm robotic trocar was placed in the left lateral position. The original 5 mm trocar was exchanged for a 8 mm robotic trocar. A four-quadrant transversus abdominis plane block was performed with 1% local Xylocaine. The patient's placed in the left side up position. And the patient was docked the robot. The umbilical hernia was visualized. Using hook cautery the peritoneum over the umbilical hernia was excised. Incarcerated omentum was dissected free sent to pathology. The fascial opening was repaired using 0V LOC suture. Next a piece of 11 cm round ventral light ST mesh was placed into the. Cavity and secured with 2 OV lock suture. The patient was undocked the robot. The needles were retrieved. The fascia of the 12 mm trocar site was closed with 0 Ethibond suture. Skin was closed inte rrupted 3-0 Monocryl suture. Dermabond dressings was applied. Patient top procedure well and was sent to recovery room stable condition.
[2023-09-02] MEDS: HYDROmorphone 0.5 MG/0.5 ML SYRINGE IVP PRN (08:56)
[2023-09-02] MEDS: HYDROmorphone 0.5 MG/0.5 ML SYRINGE IVP ONE ×2 (10:50→10:51)
[2023-09-02] MEDS ORDERED: ONDANSETRON 4 MG/2 ML VIAL IVP PRN (11:06)
[2023-09-02] MEDS ORDERED: ACETAMINOPHEN TAB 325 MG TAB PO PRN (11:06)
[2023-09-02] MEDS ORDERED: NALOXONE 0.4 MG/ML 1 ML VIAL IV PRN (11:06)
[2023-09-02] MEDS: LACTATED RINGERS 1,000 ML IV ONE ×2 (13:50→14:04)
[2023-09-02] MEDS: KETOROLAC 15 MG/ML 1 ML VIAL IVP SCH (14:07)
[2023-09-02] MEDS: HYDROmorphone 1 MG/ML 1 ML SYRINGE IVP PRN (15:44)
[2023-09-02] MEDS: HYDROcodone/APAP 5-325MG 1 EACH TAB PO PRN (19:57)
[2023-09-03 03:12] VITALS: PULSE 76
[2023-09-03 09:17] VITALS: BP 158/84; RESP 20; TEMP 97.9
[2023-09-03] MEDS: ENOXAPARIN 40 MG/0.4 ML SYRINGE SQ SCH (09:20)
--- NOTE | 2023-09-03 13:23 | P.DS ---
Providers Expected date of discharge: 09/03/23 Attending physician: Fuentes Munson Primary care physician: El Regan Hospital Course: Discharge diagnosis 1. Incarcerated umbilical hernia status post laparoscopic robotic assisted repair, partial penectomy and transversus abdominis plane block Hospital course This is a 33-year-old male with a known incarcerated umbilical hernia. He is status post laparoscopic robotic system repair of incarcerated umbilical hernia. Patient's pain is controlled. He is tolerating diet. He has ambulated. He is afebrile. He is stable for discharge. Patient seen and examined by Dr. Munson. Please refer to chart for any further details. Physician Air Sampling And Monitoring note has been reviewed by physician. Signing provider agrees with the documented findings, assessment, and plan of care. Patient Condition at Discharge: Stable Plan - Discharge Summary Discharge Rx Participant: Yes New Discharge Prescriptions: New Docusate [Colace] 100 mg PO BID #20 capsule Ibuprofen [Motrin] 600 mg PO Q6HR PRN #40 tab PRN Reason: Pain oxyCODONE HCL [OxyIR] 5 mg PO Q6H PRN 3 Days #10 tab PRN Reason: Pain Acetaminophen Tab [Tylenol] 650 mg PO Q6H #30 tab No Action Omeprazole 40 mg PO QAM Dextroamphetamine/Amphetamine [Adderall] 30 mg PO BID Discharge Medication List Omeprazole 40 mg PO QAM 11/16/20 [History] Dextroamphetamine/Amphetamine [Adderall] 30 mg PO BID 08/28/23 [History] Acetaminophen Tab [Tylenol] 650 mg PO Q6H #30 tab 09/02/23 [Rx] Docusate [Colace] 100 mg PO BID #20 capsule 09/02/23 [Rx] Ibuprofen [Motrin] 600 mg PO Q6HR PRN #40 tab 09/02/23 [Rx] oxyCODONE HCL [OxyIR] 5 mg PO Q6H PRN 3 Days #10 tab 09/02/23 [Rx] Follow up Appointment(s)/Referral(s): Fuentes Munson MD [STAFF PHYSICIAN] - 09/09/23 3:00 pm Patient Instructions/Handouts: *[facility] - Managing Your Pain After Surgery Without Opioids, *[facility] - (Anesthesia) Discharge Instructions Outpatient Surgery, Umbilical Hernia Repair (DC) Activity/Diet/Wound Care/Special Instructions: FOLLOW UP DIRECTED, SOONER IF PROBLEMS OR CONCERNS.
--- NOTE | 2023-09-11 21:06 | CDI ---
Dr. Munson, Please make an addendum indicating size of hernia defect to properly assign correct CPT code. Thanks, Kristin Badillo, [employer]D
== END 2023-09-03 14:03 | disposition home or self-care (01) ==
LOC: OR 06:02 → 6NMEDSUR 08:27 → OR 09-03 14:03
PROVIDERS: ATTEND Surgery
DX: K42.0 Umbilical hernia with obstruction, without gangrene (principal); G89.18 Other acute postprocedural pain; I10 Essential (primary) hypertension; K21.9 Gastro-esophageal reflux disease without esophagitis; Z79.899 Other long term (current) drug therapy; Z87.891 Personal history of nicotine dependence
CPT/HCPCS: 49596; S2900; 64999; 85025; 88305

== ENCOUNTER 2023-09-21 16:41 | Emergency (ER) | payer OTHER ==
--- NOTE | 2023-09-21 17:18 | ED ---
Abdominal Pain HPI - General Source: patient Mode of arrival: ambulatory Limitations: no limitations <oBbby Robb - Last Filed: 09/21/23 17:18> <Ashleigh Villalba P - Last Filed: 10/03/23 09:34> - General Chief Complaint: Abdominal Pain Stated Complaint: Abd Pain Time Seen by Provider: 09/21/23 17:15 - History of Present Illness Initial Comments: 33-year-old male presenting to the ED with a chief complaint of abdominal pain. Reports that he had hernia surgery on 09/04/2023. States 3 days ago started to feel pain on the side of his left upper abdomen which radiates to his back. Denies urinary symptoms. (Bobby Robb) - Related Data Home Medications Medication Instructions Recorded Confirmed Omeprazole 40 mg PO QAM 11/16/20 09/02/23 Dextroamphetamine/Amphetamine 30 mg PO BID 08/28/23 09/02/23 [Adderall] Previous Rx's Medication Instructions Recorded Acetaminophen Tab [Tylenol] 650 mg PO Q6H #30 tab 09/02/23 Docusate [Colace] 100 mg PO BID #20 capsule 09/02/23 Ibuprofen [Motrin] 600 mg PO Q6HR PRN #40 tab 09/02/23 oxyCODONE HCL [OxyIR] 5 mg PO Q6H PRN 3 Days #10 tab 09/02/23 Allergies Allergy/AdvReac Type Severity Reaction Status Date / Time No Known Allergies Allergy Verified 09/02/23 06:25 Review of Systems ROS Other: All systems not noted in ROS Statement are negative. <Bobby Robb - Last Filed: 09/21/23 17:18> ROS Other: All systems not noted in ROS Statement are negative. <Ashleigh Villalba P - Last Filed: 10/03/23 09:34> ROS Statement: Those systems with pertinent positive or pertinent negative responses have been documented in the HPI. Past Medical History Past Medical History: GERD/Reflux, Hearing Disorder / Deafness Additional Past Medical History / Comment(s): Some hearing loss. Frequent kidney stones - "get twice a month". History of previous back pain secondary to an injury in [place]. History of Any Multi-Drug Resistant Organisms: None Reported Past Surgical History: Adenoidectomy, Hernia Repair, Orthopedic Surgery, Tonsillectomy Additional Past Surgical History / Comment(s): Foot surgery from shrapnel. Past Anesthesia/Blood Transfusion Reactions: No Reported Reaction Past Psychological History: PTSD Smoking Status: Former smoker Past Alcohol Use History: Rare Past Drug Use History: Marijuana - Past Family History Mother Family Medical History: Cancer Brother(s) Family Medical History: Cancer <Bobby Robb - Last Filed: 09/21/23 17:18> General Exam Limitations: no limitations <Bobby Robb - Last Filed: 09/21/23 17:18> - General Exam Comments Initial Comments: Visual Physical Exam Vital signs reviewed General: nontoxic Head: Normocephalic, atraumatic Eyes: PERRLA, EOMI ENT: Airway patent Chest: Nonlabored breathing Skin: No visual rash, normal skin tone Neuro: Alert and oriented 3 Musculoskeletal: No gross abnormalities (Bobby Robb) Course Vital Signs 09/21/23 17:05 Temperature 97.8 F Pulse Rate 78 Respiratory 16 Rate Blood Pressure 126/74 O2 Sat by Pulse 98 Oximetry Medical Decision Making <Bobby Robb - Last Filed: 09/21/23 17:18> - Lab Data Result diagrams: 09/21/23 17:09 09/21/23 17:09 <Ashleigh Villalba - Last Filed: 10/03/23 09:34> - Medical Decision Making Quicknote portion performed. Signed Bobby WYNN-Oleg (Bobby Robb) Patient was seen and workup initiated in triage, CT resulted with no acute actionable findings and patient stated that he just wanted to leave. Patient walked out of the ER prior to my evaluation (Ashleigh Villalba) - Lab Data Lab Results 09/21/23 09/21/23 09/21/23 Range/Units 17:09 17:09 17:09 WBC 7.5 (3.8-10.6) k/uL RBC 5.13 (4.30-5.90) m/uL Hgb 15.1 (13.0-17.5) gm/dL Hct 44.9 (39.0-53.0) % MCV 87.4 (80.0-100.0) fL MCH 29.4 (25.0-35.0) pg MCHC 33.6 (31.0-37.0) g/dL RDW 13.2 (11.5-15.5) % Plt Count 287 (150-450) k/uL MPV 7.8 Neutrophils % 66 % Lymphocytes % 25 % Monocytes % 5 % Eosinophils % 2 % Basophils % 1 % Neutrophils # 4.9 (1.3-7.7) k/uL Lymphocytes # 1.9 (1.0-4.8) k/uL Monocytes # 0.4 (0-1.0) k/uL Eosinophils # 0.2 (0-0.7) k/uL Basophils # 0.1 (0-0.2) k/uL PT 10.6 (10.0-12.5) sec INR 1.0 (<1.2) APTT 26.6 (22.0-30.0) sec Sodium 139 (137-145) mmol/L Potassium 4.1 (3.5-5.1) mmol/L Chloride 109 H (98-107) mmol/L Carbon Dioxide 22 (22-30) mmol/L Anion Gap 8 mmol/L BUN 11 (9-20) mg/dL Creatinine 0.94 (0.66-1.25) mg/dL Est GFR (CKD-EPI)AfAm >90 (>60 ml/min/1.73 sqM) Est GFR (CKD-EPI)NonAf >90 (>60 ml/min/1.73 sqM) Glucose 106 H (74-99) mg/dL Plasma Lactic Acid Daniel (0.7-2.0) mmol/L Calcium 9.8 (8.4-10.2) mg/dL Total Bilirubin 0.9 (0.2-1.3) mg/dL AST 32 (17-59) U/L ALT 59 H (4-49) U/L Alkaline Phosphatase 97 (38-126) U/L Total Protein 6.9 (6.3-8.2) g/dL Albumin 4.3 (3.5-5.0) g/dL Amylase 61 (30-110) U/L Lipase 98 (23-300) U/L 03/24/24 Range/Units 17:09 WBC (3.8-10.6) k/uL RBC (4.30-5.90) m/uL Hgb (13.0-17.5) gm/dL Hct (39.0-53.0) % MCV (80.0-100.0) fL MCH (25.0-35.0) pg MCHC (31.0-37.0) g/dL RDW (11.5-15.5) % Plt Count (150-450) k/uL MPV Neutrophils % % Lymphocytes % % Monocytes % % Eosinophils % % Basophils % % Neutrophils # (1.3-7.7) k/uL Lymphocytes # (1.0-4.8) k/uL Monocytes # (0-1.0) k/uL Eosinophils # (0-0.7) k/uL Basophils # (0-0.2) k/uL PT (10.0-12.5) sec INR (<1.2) APTT (22.0-30.0) sec Sodium (137-145) mmol/L Potassium (3.5-5.1) mmol/L Chloride (98-107) mmol/L Carbon Dioxide (22-30) mmol/L Anion Gap mmol/L BUN (9-20) mg/dL Creatinine (0.66-1.25) mg/dL Est GFR (CKD-EPI)AfAm (>60 ml/min/1.73 sqM) Est GFR (CKD-EPI)NonAf (>60 ml/min/1.73 sqM) Glucose (74-99) mg/dL Plasma Lactic Acid Daniel 1.1 (0.7-2.0) mmol/L Calcium (8.4-10.2) mg/dL Total Bilirubin (0.2-1.3) mg/dL AST (17-59) U/L ALT (4-49) U/L Alkaline Phosphatase (38-126) U/L Total Protein (6.3-8.2) g/dL Albumin (3.5-5.0) g/dL Amylase (30-110) U/L Lipase (23-300) U/L Disposition <Bobby Robb - Last Filed: 09/21/23 17:18> Is patient prescribed a controlled substance at d/c from ED?: No <Ashleigh Villalba - Last Filed: 10/03/23 09:34> Clinical Impression: Abdominal pain Disposition: LEFT AGAINST MEDICAL ADVICE Condition: Stable Instructions (If sedation given, give patient instructions): Abdominal Pain (ED) Referrals: El Regan MD [Primary Care Provider] - 1-2 days
[2023-09-21 17:35] VITALS: BP 126/74; PULSE 78; RESP 16; TEMP 97.8
[2023-09-21 17:41] LABS: Basophils # (A) 0.1 k/uL (0-0.2); Basophils % (A) 1 %; Eosinophils # (A) 0.2 k/uL (0-0.7); Eosinophils % (A) 2 %; HCT 44.9 % (39.0-53.0); HGB 15.1 gm/dL (13.0-17.5); Lymphocytes # (A) 1.9 k/uL (1.0-4.8); Lymphocytes % (A) 25 %; MCH 29.4 pg (25.0-35.0); MCHC 33.6 g/dL (31.0-37.0); MCV 87.4 fL (80.0-100.0); Mean Platelet Volume 7.8; Monocytes # (A) 0.4 k/uL (0-1.0); Monocytes % (A) 5 %; Neutrophils # (A) 4.9 k/uL (1.3-7.7); Neutrophils % (A) 66 %; Platelet Count 287 k/uL (150-450); RBC 5.13 m/uL (4.30-5.90); RDW 13.2 % (11.5-15.5); WBC 7.5 k/uL (3.8-10.6)
[2023-09-21 17:55] LABS: Partial Thromboplastin Time 26.6 sec (22.0-30.0); Prothrombin Time 10.6 sec (10.0-12.5)
[2023-09-21 17:58] LABS: ALT 59 U/L (4-49); AST 32 U/L (17-59); African American GFR (CKD) >90 (>60 ml/min/1.73 sqM); Albumin 4.3 g/dL (3.5-5.0); Alkaline Phosphatase 97 U/L (38-126); Amylase 61 U/L (30-110); Anion Gap 8 mmol/L; Blood Urea Nitrogen 11 mg/dL (9-20); Calcium 9.8 mg/dL (8.4-10.2); Carbon Dioxide 22 mmol/L (22-30); Chloride 109 mmol/L (98-107); Glucose 106 mg/dL (74-99); Lipase 98 U/L (23-300); Non-African American GFR(CKD) >90 (>60 ml/min/1.73 sqM); Potassium 4.1 mmol/L (3.5-5.1); Sodium 139 mmol/L (137-145); Total Bilirubin 0.9 mg/dL (0.2-1.3); Total Protein 6.9 g/dL (6.3-8.2)
--- NOTE | 2023-09-21 18:33 | CT ---
EXAMINATION TYPE: CT abdomen pelvis wo con CT DLP: 1827.7 mGycm, Automated exposure control for dose reduction was used. DATE OF EXAM: 09/21/2023 6:04 PM COMPARISON: None. CLINICAL INDICATION:Male, 33 years old with history of Hx hernia surgery. Left abdominal/l flank pain ; left flank pain, recent hernia sx TECHNIQUE: Axial CT of the abdomen and pelvis. Sagittal and coronal reformats were created on a [employer] workstation. Contrast used: mL of , (none if empty) Oral contrast used: without Oral Contrast (none if empty) FINDINGS: Exam is limited without contrast. LOWER CHEST: Unremarkable ABDOMEN LIVER: Tiny hypodensities in the left lobe image 22 and right lobe image 44 are too small to characte rize, but statistically likely cysts or hemangiomas.. GALLBLADDER AND BILE DUCTS: Unremarkable gallbladder. No biliary ductal dilatation. PANCREAS: Unremarkable. SPLEEN: Unremarkable spleen with adjacent splenule. ADRENAL GLANDS: Mildly thickened, may be seen with hyperplasia.. KIDNEYS AND URETERS: Several punctate to small bilateral renal calculi, one of the largest 4.6 mm in the left mid to lower pole. No visualized ureteral calculi or hydroureteronephrosis. PELVIS BLADDER: Bladder is nondistended. Tiny hyperdensity along the posterior wall may be layering stone de bris. REPRODUCTIVE: Unremarkable. ABDOMEN & PELVIS STOMACH AND BOWEL: Stomach and small bowel are nondistended, no evidence of obstruction. The presum ed appendix shows no inflammatory changes. Fatty infiltration of the ileocecal valve. There is modera te stool seen throughout the colon without focal acute abnormality suggested. PERITONEUM/RETROPERITONEUM: No evidence of pneumoperitoneum or free fluid. VASCULATURE: Aorta and major branches are grossly unremarkable. No AAA. Normal caliber IVC. LYMPH NODES: No lymphadenopathy. SOFT TISSUE/ABDOMINAL WALL: Mild fat stranding in the left anterior abdominal wall likely related to recent surgery. Tiny fat containing umbilical region hernia. MUSCULOSKELETAL: No acute osseous abnormalities. IMPRESSION: 1. Mild stranding in the anterior abdominal wall, likely normal postoperative. 2. No acute abnormality otherwise demonstrated. 3. Multiple tiny to small bilateral renal calculi. 4. No evidence of ureteral calculi or hydronephrosis. 5. Tiny hyperdensity in the posterior bladder may represent stone debris.
== END 2023-09-21 20:51 | disposition left against medical advice (07) ==
LOC: EC 16:41
DX: R10.12 Left upper quadrant pain (principal); Z53.29 Procedure and treatment not carried out because of patient's decision for other reasons; Z87.891 Personal history of nicotine dependence
CPT/HCPCS: 36415; 74176; 80053; 82150; 83605; 83690; 85025; 85610; 85730; 99284

== ENCOUNTER 2024-02-03 02:11 | Emergency (ER) | payer OTHER ==
--- NOTE | 2024-02-25 12:50 | XR ---
Patient: David Prado Ordering Physician: Unknown, Unknown ID: [id number] Phone, Pager: Phone: N/A Rian crista: N/A : 1990 Age/Gender: 33Y, M Primary Location: N/A Procedure: XR SHOULDER COMPLETE LEFT Study Date: 02/03/2024 3:26:00 AM EXAMINATION TYPE: XR shoulder complete LT DATE OF EXAM: 02/22/2024 10:43 AM CLINICAL INDICATION: Left shoulder pain COMPARISON: None TECHNIQUE: XR shoulder complete LT; examined in AP, internally rotated and scapular Y projections. FINDINGS/IMPRESSION: Irregular morphology to the inferior glenoid further evaluation with CT recommended to exclude fractu re.
== END 2024-02-03 04:00 | disposition home or self-care (01) ==
LOC: EC 02:11
DX: M25.512 Pain in left shoulder (principal); W01.0XXA Fall on same level from slipping, tripping and stumbling without subsequent striking against object, initial encounter; Y99.0 Civilian activity done for income or pay; Y92.89 Other specified places as the place of occurrence of the external cause
CPT/HCPCS: 99283

== ENCOUNTER → 2024-02-25 | Outpatient (CLI) | payer OTHER ==
--- NOTE | 2024-02-25 09:38 | MR ---
EXAMINATION TYPE: MR shoulder LT wo con DATE OF EXAM: 02/25/2024 COMPARISON: X-ray 02/03/2024 HISTORY: Left shoulder pain due to fall TECHNIQUE: Multiplanar, multisequence imaging of the left shoulder is performed without contrast. FINDINGS: Rotator Cuff: There is increased signal within the substance of the distal infraspinatus and supraspi natus tendons compatible with tendinosis. No through thickness tear or retraction. There is thickenin g and increased signal near the insertion of the subscapularis tendon compatible with tendinosis. No definite tear identified. Acromioclavicular Joint: There is moderate AC joint arthropathy with a tiny spur resulting in mass ef fect upon the supraspinatus tendon impingement. Glenohumeral Joint: There is spurring along the inferior margin of the humeral head and cystic change s of the glenoid which appear to be chronic. Remote deformity of the inferior glenoid rim suspected. No definite acute fracture. Moderate arthropathy. Small amount of fluid in the joint space. Labrum: Limited assessment with noncontrast arthrogram technique demonstrates Limited visualization o f the inferior labrum. There does appear to be increased signal involving the superior labrum within the substance suspicious for labral tear. Biceps Tendon: There is thickening and increased signal within the rotator interval extending to the biceps anchor compatible with tendinosis and probable split tear. The bicipital tendon is well situat ed in the bicipital groove. Bone marrow signal: Reactive marrow changes involving the clavicle and acromion at the level of the A C joint. There is cystic changes involving the glenoid which likely is on the basis of either remote post trauma or chronic arthropathy. IMPRESSION: 1. AC joint arthropathy with impingement and mild tendinosis of the infraspinatus and supraspinatus t endons. No through thickness tear or retraction. 2. Moderate glenohumeral joint arthropathy with chronic deformity of the inferior glenoid rim likely in the basis of either remote trauma or post arthritic. 3. Thickening and increased signal at the biceps tendon within the biceps interval. Findings compatib le with tendinosis and suspicious for split tear. 4. Increased signal within the substance of the superior labrum suspicious for superior labral tear. 5. Poor evaluation and visualization of the inferior labrum with the above-mentioned deformity of the glenoid. Suspect chronic degenerative tear.
== END | disposition home or self-care (01) ==
LOC: RADMRIMAIN 06:32
PROVIDERS: ATTEND Emergency Medicine
DX: S43.402D Unspecified sprain of left shoulder joint, subsequent encounter

== ENCOUNTER 2024-03-29 03:23 | Emergency (ER) | payer OTHER ==
[2024-03-29 03:56] VITALS: TEMP 97.9
[2024-03-29] MEDS: FLUORESCEIN STRIPS 1 MG STRIP LEFT EYE ONE (04:06)
[2024-03-29] MEDS: PROPARACAINE 0.5% OPHTH DROPS 15 ML BTL LEFT EYE STA (04:07)
[2024-03-29] MEDS: DIPH,PERTUS(ACELL)TETVAC-LF 0.5 ML VIAL IM ONE (04:49)
--- NOTE | 2024-03-29 05:48 | ED ---
Eye Problem HPI - General Chief complaint: Eye Problems Stated complaint: Eye Pain Time Seen by Provider: 03/29/24 03:55 Source: patient Mode of arrival: ambulatory Limitations: no limitations - History of Present Illness Initial comments: This patient is a 33-year-old man who presents to have evaluation of left eye pain. The patient states that he had been walking [place] the [place] when a small branch of a tree struck him in the eye. He states that after he went to bed the pain increased. He has not noted change in vision. The patient denies previous eye injury. He has not noted fever or chills. There is some tearing associated. MD chief complaint: eye pain Onset/Timin -: days(s) Onset Description: sudden Location: left eye Place: street/outdoors Eye Symptoms: redness, pain, foreign body sensation Severity: moderate, severe If Pain, Quality: sharp Consistency: constant Associated Symptoms: none Treatments Prior to Arrival: none - Related Data Patient Tetanus UTD: No Home Medications Medication Instructions Recorded Confirmed Omeprazole 40 mg PO QAM 11/16/20 09/02/23 Dextroamphetamine/Amphetamine 30 mg PO BID 08/28/23 09/02/23 [Adderall] Previous Rx's Medication Instructions Recorded Acetaminophen Tab [Tylenol] 650 mg PO Q6H #30 tab 09/02/23 Docusate [Colace] 100 mg PO BID #20 capsule 09/02/23 Ibuprofen [Motrin] 600 mg PO Q6HR PRN #40 tab 09/02/23 oxyCODONE HCL [OxyIR] 5 mg PO Q6H PRN 3 Days #10 tab 09/02/23 Allergies Allergy/AdvReac Type Severity Reaction Status Date / Time No Known Allergies Allergy Verified 03/29/24 03:34 Review of Systems ROS Statement: Those systems with pertinent positive or pertinent negative responses have been documented in the HPI. ROS Other: All systems not noted in ROS Statement are negative. Constitutional: Denies: fever Eyes: Reports: eye pain, eye discharge. Denies: vision change Respiratory: Denies: cough Gastrointestinal: Denies: vomiting Skin: Denies: rash Neurological: Denies: headache Past Medical History Past Medical History: GERD/Reflux, Hearing Disorder / Deafness Additional Past Medical History / Comment(s): Some hearing loss. Frequent kidney stones - "get twice a month". History of previous back pain secondary to an injury in [place]. History of Any Multi-Drug Resistant Organisms: None Reported Past Surgical History: Adenoidectomy, Hernia Repair, Orthopedic Surgery, Tonsillectomy Additional Past Surgical History / Comment(s): Foot surgery from shrapnel. Past Anesthesia/Blood Transfusion Reactions: No Reported Reaction Past Psychological History: PTSD Smoking Status: Former smoker Past Alcohol Use History: Rare Past Drug Use History: Marijuana - Past Family History Mother Family Medical History: Cancer Brother(s) Family Medical History: Cancer General Exam Limitations: no limitations General appearance: alert, in distress Head exam: Present: atraumatic, normocephalic Eye exam: Present: PERRL, EOMI, conjunctival injection, periorbital swelling. Absent: scleral icterus, nystagmus, periorbital tenderness Neurological exam: Present: alert Skin exam: Present: warm, dry, intact, normal color. Absent: rash Course Vital Signs 03/29/24 03/29/24 03:35 06:01 Temperature 97.9 F Pulse Rate 102 H 98 Respiratory 20 18 Rate Blood Pressure 122/68 147/85 O2 Sat by Pulse 97 97 Oximetry Medical Decision Making - Medical Decision Making Patient is a 33-year-old man with left eye pain following being struck in the eye by twig. Please note that our slit-lamp was broken and unavailable. I did gavin the patient's lids and irrigate. Fluorescein was applied and there is no foreign body. No Sidel sign. There is corneal abrasion. The patient's cornea is thin with no clouding. There is no evident hyphema. Pupil is round and reactive. The patient's tetanus status updated. The patient is started on antibiotic drops given that there was concern about organic material. The patient to have close follow-up with ophthalmology to ensure that there is improvement. Appropriate further care and follow-up discussed as well as return parameters. Patient warned about no contact lens use until cleared by ophthalmology. Was pt. sent in by a medical professional or institution (, PA, INTERACTIVE MEDIA PROJECT MANAGER, urgent care, hospital, or correction...) When possible be specific @ -[No] Did you speak to anyone other than the patient for history (EMS, parent, family, police, friend...)? What history was obtained from this source @ -[No] Did you review nursing and triage notes (agree or disagree)? Why? @ -[I reviewed and agree with nursing and triage notes] Were old charts reviewed (outside hosp., previous admission, EMS record, old EKG, old radiological studies, urgent care reports/EKG's, correction records)? Report findings @ -[No old charts were reviewed] Differential Diagnosis (chest pain, altered mental status, abdominal pain women, abdominal pain men, vaginal bleeding, weakness, fever, dyspnea, syncope, headache, dizziness, GI bleed, back pain, seizure, CVA, palpatations, mental health, musculoskeletal)? @ -[Differential diagnosis includes: Corneal abrasion, globe rupture, hyphema, glaucoma, EKG interpreted by me (3pts min.). @ -[As above] X-rays interpreted by me (1pt min.). @ -[None done] CT interpreted by me (1pt min.). @ -[None done] U/S interpreted by me (1pt. min.). @ -[None done] What testing was considered but not performed or refused? (CT, X-rays, U/S, labs)? Why? @ -[None] What meds were considered but not given or refused? Why? @ -[None] Did you discuss the management of the patient with other professionals (professionals i.e. , PA, INTERACTIVE MEDIA PROJECT MANAGER, lab, RT, psych nurse, social services, tow truck dispatcher, teacher, correction officer city or county jail, nurse case management)? Give summary @ -[No] Was smoking cessation discussed for >3mins.? @ -[No] Was critical care preformed (if so, how long)? @ -[No] Were there social determinants of health that impacted care today? How? (Homelessness, low income, unemployed, alcoholism, drug addiction, transportation, low edu. Level, literacy, decrease access to med. care, longterm, rehab)? @ -[No] Was there de-escalation of care discussed even if they declined (Discuss DNR or withdrawal of care, Hospice)? DNR status @ -[No] What co-morbidities impacted this encounter? (DM, HTN, Smoking, COPD, CAD, Cancer, CVA, ARF, Chemo, Hep., AIDS, mental health diagnosis, sleep apnea, morbid obesity)? @ -[None] Was patient admitted / discharged? Hospital course, mention meds given and route, prescriptions, significant lab abnormalities, going to OR and other pertinent info. @ -[As above Undiagnosed new problem with uncertain prognosis? @ -[No] Drug Therapy requiring intensive monitoring for toxicity (Heparin, Nitro, Insulin, Cardizem)? @ -[No] Were any procedures done? @ -[No] Diagnosis/symptom? @ -[Acute corneal abrasion Acute, or Chronic, or Acute on Chronic? @ -[Acute Uncomplicated (without systemic symptoms) or Complicated (systemic symptoms)? @ -[Uncomplicated Side effects of treatment? @ -[No] Exacerbation, Progression, or Severe Exacerbation? @ -[No] Poses a threat to life or bodily function? How? (Chest pain, [place], [place], pneumonia, PE, COPD, DKA, ARF, appy, cholecystitis, CVA, Diverticulitis, Homicidal, Suicidal, threat to staff... and all critical care pts) @ -[There is slight risk of visual complication and patient aware that he must see ophthalmology in the coming day Disposition Clinical Impression: Corneal abrasion Disposition: HOME SELF-CARE Condition: Good Instructions (If sedation given, give patient instructions): Abrasion (ED) Is patient prescribed a controlled substance at d/c from ED?: No Referrals: El Regan MD [Primary Care Provider] - 1-2 days Ashish Kelley MD [STAFF PHYSICIAN] - 1-2 days Silver Cunha MD [STAFF PHYSICIAN] - 1-2 days
[2024-03-29] MEDS: CIPROFLOXACIN 0.3% OPHTH SOLN 5 ML BTL LEFT EYE ONE (06:01)
[2024-03-29 06:02] VITALS: BP 147/85; PULSE 98; RESP 18
== END 2024-03-29 06:05 | disposition home or self-care (01) ==
LOC: EC 03:23
CPT/HCPCS: 90471; 90715; 99283